=== PATIENT | male | born 1960 | race African-American/Black ===

== ENCOUNTER 2017-01-10 19:18 | Emergency (ER) | payer OTHER ==
[~2017-01-10] VITALS: Ht 170.2 cm; Wt 105.0 kg
[~2017-01-10 19:18] MED LIST: BRIM0.2S EACH EYE; DORZ1SOL2 EACH EYE; XALA0.00 EACH EYE
[2017-01-10 19:20] VITALS: BP 158/88; PULSE 92; RESP 18; TEMP 98.6; O2SAT 97
[2017-01-10] MEDS ORDERED: BRIM0.2S4 LEFT EYE (20:08)
[2017-01-10] MEDS ORDERED: LATA0.002 LEFT EYE (20:08)
[2017-01-10] MEDS ORDERED: DORZ2SOL7 LEFT EYE (20:10)
[2017-01-10] MEDS ORDERED: PROPARACAINE HCL 0.5% OPHT SOLN 15 ML BTL LEFT EYE ONE (20:30)
--- NOTE | 2017-01-10 20:51 | PD ---
HPI Chief Complaint: Eye Problems/Injury Time Seen by Provider: 20:46 Travel History International Travel<30 days: No Contact w/Intl Traveler<30days: No Traveled to known affect area: No History of Present Illness HPI Patient comes in complaining of left eye pain that began today. Patient states feels like an eye strain. Patient reports some sensitivity to light. Patient denies anything making it better. Patient reports it has been watering as well. Patient states that he called his disaster recovery analyst office, who recommended emergency department further treatment and evaluation. Patient denies any known trauma or foreign body sensation. Patient reports that he just had surgery on his left eye in November for glaucoma. Patient's disaster recovery analyst is Dr. Henson. [facility] Past Medical History Cancer: No Cardiovascular Problems: No Diabetes: No Diminished Hearing: No Endocrine: No Gastrointestinal Disorders: No Genitourinary: No Hepatitis: No Hiatal Hernia: No Hypertension: No Immune Disorder: No Medical other: Yes (GLAUCOMA) Musculoskeletal: No Neurologic: No Psychiatric: No Respiratory: No Thyroid Disease: No Past Surgical History AICD: No Joint Replacement: No Pacemaker: No Other Surgery: No Social History Alcohol Use: No Tobacco Use: No Substance Use: No Allergies-Medications (Allergen,Severity, Reaction): Coded Allergies: No Known Allergies (Verified , 01/10/17) Reported Meds & Prescriptions Reported Meds & Active Scripts Active Reported Cosopt Opth Drops (Dorzolamide-Timolol Opth Drops) 22.3-6.8 Mg/Ml Soln 1 Drop LEFT EYE BID Latanoprost Opth Drops (Latanoprost) 0.005% Drops 1 Drop LEFT EYE HS Refrigerate until opened. Brimonidine Opth Drops (Brimonidine Tartrate) 0.2% Soln 1 Drop LEFT EYE BID Review of Systems Except as stated in HPI: all other systems reviewed are Neg Physical Exam Narrative GENERAL: Well-developed, overly nourished, in no acute distress, and non-ill appearing. SKIN: Warm and dry. HEAD: Atraumatic. Normocephalic. EYES: Pupils equal and round. EOMI. No scleral icterus. Left eye injection with watery drainage. ENT: No nasal bleeding or discharge. Mucous membranes pink and moist. NECK: Trachea midline. Supple. No nuclear rigidity. RESPIRATORY: No accessory muscle use. No respiratory distress. MUSCULOSKELETAL: No obvious deformities. No clubbing. No cyanosis. No edema. Full range of motion. NEUROLOGICAL: Awake and alert. No obvious cranial nerve deficits. Motor grossly within normal limits. Normal speech. PSYCHIATRIC: Appropriate mood and affect; insight and judgment normal. Data Data Last Documented VS Vital Signs Date Time Temp Pulse Resp B/P Pulse Ox O2 Delivery O2 Flow Rate FiO2 01/10/17 19:20 98.6 92 18 158/88 97 Room Air Orders Proparacaine 0.5% Opth Soln (Alcaine 0.5 (01/10/17 20:30) MDM Medical Decision Making Medical Screen Exam Complete: Yes Emergency Medical Condition: Yes Differential Diagnosis Worsening glaucoma, conjunctivitis, corneal abrasion, corneal ulcer, foreign body, other Narrative Course Patient in no obvious distress upon re-evaluation. Any questions/concerns in reference to patient diagnosis/condition discussed and clarified prior to patient's discharge. Reinforced sheer importance of close follow up with patient 's disaster recovery analyst on Thursday. Instructed patient to return to ED immediately, if symptoms return/worsen. Pt showed understanding of above instructions. Further instructions and recommendations were detailed in discharge paperwork. Pt ambulated without difficulty out of ED at discharge. Procedures Procedure Narrative Verbal consent was obtained. Affected eye was anesthetized using proparacaine. Fluorescein staining and Wood lamp exam performed with no uptake seen. Negative Surinder sign. No hyphema, hyperemia, or rust ring. Eyelid was everted with no foreign body noted. No tenderness bilateral temporal arteries to palpation. Intraocular eye pressure was found to be 17, 19, and 16 for an average of 17.5. Visual acuity was found to be 20/40 OS, 20/30 OD, 20/25 both eyes. Patient tolerated procedure well. Physician Communication Physician Communication [id number] Dumont, disaster recovery analyst motel front desk clerk for Dr. Henson , who recommends not changing any of the patient's medications or starting any new medications including antibiotics. Recommends having patient discharged home, continue current medications, and follow-up in their office on Thursday. Diagnosis Primary Impression: Left eye pain Patient Instructions: Eye Pain (ED), General Instructions Additional Instructions: Follow-up with your disaster recovery analyst on Thursday. Take all your current medication as prescribed. Return to the emergency department if symptoms get worse. Disposition: DISCHARGE HOME Condition: Stable Shon Kaur Jan 10, 2017 20:51
== END 2017-01-10 21:17 | disposition home or self-care (01) ==
LOC: NEPB 19:18
DX: H57.12 Ocular pain, left eye (principal)
CPT/HCPCS: 99283

== ENCOUNTER 2018-10-07 02:45 | Inpatient (IN) ==
[2018-10-07] MEDS ORDERED: Morphine Inj 4 MG/ML Vial IV.PUSH ONE ×2 (03:03→04:00)
[2018-10-07] MEDS ORDERED: Sod Chloride 0.9% Inj 1,000 ML IV.SIG ONE (03:03)
--- NOTE | 2018-10-07 03:09 | ED ---
HPI General Chief Complaint: Abdominal Pain Stated Complaint: Abd pain Time Seen by Provider: 10/07/18 02:59 Source: patient Mode of arrival: ambulatory Limitations: no limitations History of Present Illness MD complaint: Reports abdominal pain Onset (ago): day(s) (2) Pain Consistency: constant and other (worse tonight) Location: Reports diffuse (mainly upper) Severity: severe Severity scale (1-10): 8 Quality: Reports aching and fullness Radiation: Reports none Migration to: Reports no migration Relieving factors: nothing Exacerbating factors: nothing Context: Reports other (History of hernia repair) Associated symptoms: Reports denies other symptoms; Denies nausea, vomiting, diarrhea, fever, constipation, dysuria and hematuria Related Data Home Medications Medication Instructions Recorded Confirmed No Known Home Medications 10/07/18 10/07/18 Allergies Allergy/AdvReac Type Severity Reaction Status Date / Time No Known Allergies Allergy Verified 10/07/18 02:50 Review of Systems ROS: all other systems reviewed are negative [facility] Surgical History Surgical History Cataract extraction status, unspecified eye (Acute) Hx of hernia repair (Acute) Social History Social History Substance History: No History of Abuse Second Hand Smoke Exposure: No Smoking Status: Never smoker How Often Do You Have a Drink Containing Alcohol: Monthly or less Recent Travel in [facility] within the Last 8 Weeks: No Recent Out of Country Travel within the Last 8 Weeks: Yes Exam Const General: cooperative, healthy appearing, well developed, well groomed, acute distress and other (He is standing by the bed leaning over the bed. He looks very uncomfortable) Orientation: alert, awake and oriented x3 HENMT Head: normal to inspection, normocephalic and atraumatic Mouth: moist mucous membranes Eyes Conjunctivae: conjunctivae normal Sclera: sclerae normal EOM: EOM intact bilaterally Neck Neck: normal visual inspection and full ROM Chest Chest: normal inspection of the chest Resp Effort & Inspection: normal respiratory effort and able to speak in complete sentences Auscultation: clear to auscultation bilaterally Cardio Rate: regular rate Rhythm: regular rhythm GI Inspection: distended Palpation: soft and tender in the epigastrum Back/Spine/Pelvis Cervical Spine: cervical ROM normal Thoracic/Lumbar Spine: thoraco-lumbar ROM normal Skin General: no rashes or lesions noted and turgor normal Neuro General: alert, awake, oriented x3, moves all extremities and CN's II-XI intact bilaterally Extrem General: normal to inspection and full ROM Psych Appearance: grossly normal Mental Status: mental status grossly normal Speech and Movement: speech and movement normal Mood: congruent mood Affect: normal affect Attitude: cooperative Thought Process: normal Thought Content: normal Judgment: judgment good Course Initial Documented Vital Signs Temperature 98.5 F 10/07/18 02:50 Pulse Rate 75 10/07/18 02:50 Respiratory Rate 21 10/07/18 02:50 Blood Pressure 134/63 10/07/18 02:50 Pulse Oximetry 97 10/07/18 02:50 Last Documented Vital Signs Temperature 98.5 F 10/07/18 02:50 Pulse Rate 71 10/07/18 03:22 Respiratory Rate 18 10/07/18 03:22 Blood Pressure 126/70 10/07/18 03:22 Pulse Oximetry 98 10/07/18 03:22 Medical Decision Making MDM Narrative Medical decision making narrative: This patient presents complaining with upper abdominal pain. Onset was 2 days ago. Symptoms became acutely worse tonight. He denies any associated symptoms. He does state that his abdomen feels distended. He also reports previous abdominal surgery. An IV will be started. He will be given IV pain medications. Routine lab work and a CT of his abdomen and pelvis are pending. His CT is compatible with a partial small bowel obstruction. He has dilated loops of small bowel with some inflammatory changes around the jejunum. I have treated him empirically with IV Zosyn. He is continuing to have pain. He will be given another dose of morphine. I will request admission to the hospital for further evaluation and treatment. The patient states that Dr. Faust did his hernia repair. Medical Screen Exam Complete: Yes Emergency Medical Condition: Yes Differential Diagnosis Differential Diagnosis: Differential diagnosis of abdominal pain includes but is not limited to gastritis, pancreatitis, hepatitis, gastroenteritis, constipation, urinary retention, peptic ulcer disease, diverticulitis or appendicitis Lab Data Lab results reviewed: Yes I reviewed the patient's lab results. Result diagrams: 10/07/18 03:11 10/07/18 03:11 Lab Results 10/07/18 10/07/18 Range/Units 03:11 03:11 WBC 12.3 H (4.0-11.0) th/mm3 RBC 4.78 (4.50-5.90) mil/mm3 Hgb 14.3 (13.0-17.0) gm/dL Hct 42.4 (39.0-51.0) % MCV 88.9 (80.0-100.0) fL MCH 30.0 (27.0-34.0) pg MCHC 33.7 (32.0-36.0) % RDW 12.7 (11.6-17.2) % Plt Count 328 (150-450) th/mm3 MPV 7.1 (7.0-11.0) fL Neut % (Auto) 77.3 H (16.0-70.0) % Lymph % (Auto) 15.3 (9.0-44.0) % [place] % (Auto) 6.6 (0.0-8.0) % Eos % (Auto) 0.5 (0.0-4.0) % Baso % (Auto) 0.3 (0.0-2.0) % Neut # (Auto) 9.5 H (1.8-7.7) th/mm3 Lymph # (Auto) 1.9 (1.0-4.8) th/mm3 [place] # (Auto) 0.8 (0.0-0.9) th/mm3 Eos # (Auto) 0.1 (0.0-0.4) th/mm3 Baso # (Auto) 0.0 (0.0-0.2) th/mm3 WBC Differential . Differential Comment Auto diff final Sodium 137 (136-145) meq/L Potassium 3.9 (3.5-5.1) meq/L Chloride 105 (98-107) meq/L Carbon Dioxide 26.5 (21.0-32.0) meq/L Anion Gap 6 (5-15) meq/L BUN 13 (7-18) mg/dL Creatinine 0.85 (0.60-1.30) mg/dL Estimated GFR Greater than 89 (>89) mL/min Random Glucose 142 H (74-106) mg/dL Calcium 8.2 L (8.5-10.1) mg/dL Magnesium 2.1 (1.5-2.5) mg/dL Total Bilirubin 0.6 (0.2-1.0) mg/dL AST 15 (15-37) U/L ALT 38 (12-78) U/L Alkaline Phosphatase 105 (45-117) U/L Total Protein 9.0 H (6.4-8.2) g/dL Albumin 3.7 (3.4-5.0) g/dL Lipase 59 L (73-393) U/L Imaging Data Radiologist's impression: Abdomen/Pelvis CT 10/07/18 03:03 CONCLUSION: 1. Dilated proximal small bowel with a single loop of distal jejunum showing inflammatory change. No free air or abscess. ECG Data EKG Prior to Arrival: No Attestation: I personally reviewed and interpreted this ECG as follows: (EKG shows a normal sinus rhythm with a rate of 68. No acute ischemic changes.) Discharge Plan Discharge Disposition Patient Disposition: ED Admit(ED Internal Use Only) Discharge Order Discharge Orders: ED Use Only Admit Order (Routine); Ordered 10/07/18 Ordered By: Clarice Valladares Discharge Details Diagnosis: Partial obstruction of small intestine Physicians Team ED Provider: Clarice Valladares Primary Care Provider: NON STAFF,PROVIDER Rxs /Orders / Referrals /Forms Prescriptions: No Action No Known Home Medications RF: 0 Status ED Status: Pending Admission
[2018-10-07 03:23] LABS: Baso % (Auto) 0.3 % (0.0-2.0); Eos # (Auto) 0.1 th/mm3 (0.0-0.4); Eos % (Auto) 0.5 % (0.0-4.0); Hematocrit 42.4 % (39.0-51.0); Hemoglobin 14.3 gm/dL (13.0-17.0); Lymph # (Auto) 1.9 th/mm3 (1.0-4.8); Lymph % (Auto) 15.3 % (9.0-44.0); Mean Corpuscular HGB Conc 33.7 % (32.0-36.0); Mean Corpuscular Volume 88.9 fL (80.0-100.0); Mean Platelet Volume 7.1 fL (7.0-11.0); Mono # (Auto) 0.8 th/mm3 (0.0-0.9); Mono % (Auto) 6.6 % (0.0-8.0); Neut # (Auto) 9.5 th/mm3 (1.8-7.7); Neut % (Auto) 77.3 % (16.0-70.0); Platelet Count 328 th/mm3 (150-450); Red Blood Count 4.78 mil/mm3 (4.50-5.90); Red Cell Distribution Width 12.7 % (11.6-17.2); White Blood Count 12.3 th/mm3 (4.0-11.0)
--- NOTE | 2018-10-07 03:49 | CT ---
EXAM DATE: 10/07/2018 3:31 AM EST AGE/SEX: 58 years / Male INDICATIONS: Diffuse abdominal pain. CLINICAL DATA: This is the patient's initial encounter. Patient reports that signs and symptoms have been present for 2 days and indicates a pain score of 8/10. MEDICAL/SURGICAL HISTORY: None. None. ORAL CONTRAST: No oral contrast ingested. RADIATION DOSE: 13.28 CTDI (mGy) COMPARISON: . TECHNIQUE: Multiple contiguous axial images were obtained through the abdomen and pelvis following b olus infusion of 96 ml Omnipaque 350 (iohexol) nonionic water-soluble contrast as a single exam dos e. No oral contrast ingested. Using automated exposure control and adjustment of the mA and/or kV ac cording to patient size, radiation dose was kept as low as reasonably achievable to obtain optimal di agnostic quality images. DICOM format image data is available electronically for review and comparis on. FINDINGS: Lower Lungs: The visualized lower lungs are clear. Liver: The liver has a homogeneous density without space-occupying lesion. A couple of tiny hepatic c yst within the right lobe. There is no dilation of the biliary tree. Gallbladder is unremarkable. Spleen: Homogeneous density without enlargement. Pancreas: Unremarkable without mass or calcification. Kidneys: Normal in size and shape. No evidence of mass or hydronephrosis. Adrenal Glands: Unremarkable. Aorta: The aorta and proximal iliac vessels are grossly unremarkable without aneurysmal dilation. Bowel/Mesentery: Dilated loops of proximal small bowel without a focal transition point. The distal small bowel and colon are normal in caliber. There is a single loop of distal jejunum that shows foca l wall thickening within the anterior aspects of the peritoneal cavity within the left lower quadrant . There is mild stranding of the adjacent mesentery. No free air or free fluid. Abdominal Wall: Prior ventral hernia repair utilizing mesh. No recurrent hernia.. Retroperitoneum: No evidence of adenopathy in the retrocrural, para-aortic, or deep pelvic regions. Bladder: Contours are smooth. Reproductive Organs: No abnormal masses or calcifications seen. Inguinal: The inguinal region is unremarkable without evidence of adenopathy. Bony Structures: Unremarkable. CONCLUSION: 1. Dilated proximal small bowel with a single loop of distal jejunum showing inflammatory change. No free air or abscess. Electronically signed by: Guicho Silverman MD 10/07/2018 3:48 AM EST
[2018-10-07 03:52] LABS: Alanine Aminotransferase 38 U/L (12-78); Albumin 3.7 g/dL (3.4-5.0); Anion Gap 6 meq/L (5-15); Aspartate Aminotransferase 15 U/L (15-37); Blood Urea Nitrogen 13 mg/dL (7-18); Calcium 8.2 mg/dL (8.5-10.1); Carbon Dioxide 26.5 meq/L (21.0-32.0); Chloride 105 meq/L (98-107); Glomerular Filtration Rate Greater Than 89 mL/min (>89); Glucose,Random 142 mg/dL (74-106); Lipase 59 U/L (73-393); Magnesium 2.1 mg/dL (1.5-2.5); Potassium 3.9 meq/L (3.5-5.1); Sodium 137 meq/L (136-145)
[2018-10-07 03:55] LABS: Alkaline Phosphatase 105 U/L (45-117)
[2018-10-07] MEDS ORDERED: Piperacil/Tazo 4.5 GM Premix 4.5 GM/100 ML BAG IV.SIG ONE (03:58)
[2018-10-07 04:34] LABS: Bilirubin,Urine Negative (Negative); Clarity,Urine Clear (Clear); Color,Urine Yellow (Yellw/Straw); Glucose,Urine (UA) Negative (Negative); Leukocyte Esterase,Urine Negative (Negative); Mucus,Urine Few /lpf (Occasional); Nitrite,Urine Negative (Negative); Squamous Epithelial Cell,Urine <1 /hpf (0-5); Urobilinogen,Urine 4 or Greater mg/dL (Less than 2)
[2018-10-07] MEDS: Morphine Inj 4 MG/ML Vial IV.PUSH PRN ×4 (06:16→16:14)
[2018-10-07] MEDS: Sod Chloride 0.9% Inj 1,000 ML IV.CONT SCH ×4 (06:50→23:36)
--- NOTE | 2018-10-07 08:58 | P.CONGS ---
[facility] Gen Surgery Consult Note Consult date: 10/07/18 Narrative: 58-year-old male with history of laparoscopic ventral hernia repair with mesh in [place] [address] Faust presents with 1 day of mid abdominal pain which worsened last night and required him to present to the emergency department. He describes the pain as a severe soreness. He says his abdomen is not usually this protuberant. He denies nausea vomiting or diarrhea. He did eat yesterday and has continued to have bowel movements. White blood count is 12,[address] abdomen and pelvis showed possible partial small bowel obstruction with thickening of a portion of the jejunum. Review of Systems All other systems reviewed negative except as stated in [facility] PMF[facility] - History History Provided By: Patient - Surgical History Surgical History: Surgical History (Last Reviewed 10/07/18 @ 03:07 by Clarice Valladares) Cataract extraction status, unspecified eye Hx of hernia repair - Tobacco History Second Hand Smoke Exposure: No Tobacco Use In Past 30 Days: No Smoking Status: Never smoker - Alcohol History How Often Do You Have a Drink Containing Alcohol: Monthly or less - Substance Use History Substance History: No History of Abuse - Travel History Recent Travel in the [place] Within the Last 8 Weeks: No Recent Travel Out of the Country Within the Last 8 Weeks: Yes - Immunization History Tetanus Immunization: >5 Years Hx Influenza Vaccine This Season: No Medications and Allergies Active Medications: Active Medications Sodium Chloride (Ns Inj) 1,000 mls @ 125 mls/hr IV.CONT .Q8H TIAGO Last Admin: 10/07/18 06:50 Dose: 125 mls/hr Influenza Virus Vaccine (Fluarix (Quad) Vaccine Inj) 0.5 ml IM .ONCE ONE Stop: 10/07/18 09:01 Morphine Sulfate (Morphine Inj) 4 mg IV.PUSH Q4H PRN PRN Reason: Acute Pain Last Admin: 10/07/18 06:16 Dose: 4 mg Ondansetron HCl (Zofran Inj) 4 mg IV.PUSH Q6H PRN PRN Reason: NAUSEA OR VOMITING Sodium Chloride (Ns Flush) 2 ml IV.FLUSH PRN PRN PRN Reason: FLUSH AFTER USING IV ACCESS Allergies Allergy/AdvReac Type Severity Reaction Status Date / Time No Known Allergies Allergy Verified 10/07/18 02:50 Home Medications Medication Instructions Recorded Confirmed Type No Known Home Medications 10/07/18 10/07/18 History Exam Vital signs: Vital Signs 10/07/18 02:50 10/07/18 03:22 10/07/18 06:00 Temperature 98.5 F 97.5 F L Pulse Rate 75 71 65 Respiratory Rate 21 18 22 Blood Pressure 134/63 126/70 126/60 Pulse Oximetry 97 98 98 10/07/18 08:00 Temperature 98.4 F Pulse Rate 67 Respiratory Rate 18 Blood Pressure 108/65 Pulse Oximetry 99 Intake & Output 10/06/18 10/07/18 10/07/18 18:59 06:59 18:59 Intake Total 1100 / 1100 Balance 1100 / 1100 Weight 105.6 kg Intake: IV 1100 / 1100 Zosyn 4.5 GM Premix 4.5 gm In 100 / 100 100 ml @ 200 mls/hr IV.SIG ONCE ONE Rx#:[id number] NS Inj 1,000 ML @ Wide Open IV. 1000 / 1000 SIG BOLUS ONE Rx#:[id number] Other: Date of Last Bowel Movement 10/06/18 Weight On Admission 105.6 kg Narrative: GENERAL: Awake and alert. No acute distress. Cooperative. HEAD: Normocephalic. Atraumatic. EYES: Pupils equal round and reactive to light bilaterally. No scleral icterus. ENT: Moist oral mucosa. NECK: Trachea midline. CHEST: Nonlabored breathing. No respiratory distress. CARDIOVASCULAR: Regular rate and rhythm. ABDOMEN: Significantly distended. Soft. Mild upper abdominal tenderness and moderate tenderness just above the umbilicus. Well-healed port scars. No rebound or guarding. EXTREMITIES: No cyanosis or edema. SKIN: Warm, dry, nonjaundiced. Results - Labs 10/07/18 03:11 10/07/18 03:11 Laboratory Results - last 24 hr 10/07/18 10/07/18 10/07/18 03:11 03:11 04:07 WBC 12.3 H RBC 4.78 Hgb 14.3 Hct 42.4 MCV 88.9 MCH 30.0 MCHC 33.7 RDW 12.7 Plt Count 328 MPV 7.1 Neut % (Auto) 77.3 H Lymph % (Auto) 15.3 [place] % (Auto) 6.6 Eos % (Auto) 0.5 Baso % (Auto) 0.3 Neut # (Auto) 9.5 H Lymph # (Auto) 1.9 [place] # (Auto) 0.8 Eos # (Auto) 0.1 Baso # (Auto) 0.0 WBC Differential . Differential Comment Auto diff final Sodium 137 Potassium 3.9 Chloride 105 Carbon Dioxide 26.5 Anion Gap 6 BUN 13 Creatinine 0.85 Estimated GFR Greater than 89 Random Glucose 142 H Calcium 8.2 L Magnesium 2.1 Total Bilirubin 0.6 AST 15 ALT 38 Alkaline Phosphatase 105 Total Protein 9.0 H Albumin 3.7 Lipase 59 L Urine Color Yellow Urine Clarity Clear Urine pH 6.0 Ur Specific [place] Greater than 1.060 H Urine Protein Negative Urine Glucose (UA) Negative Urine Ketones Negative Urine Occult Blood Negative Urine Nitrate Negative Urine Bilirubin Negative Urine Urobilinogen 4 or greater Ur Leukocyte Esterase Negative Urine RBC 3 Urine WBC 1 Ur Squamous Epith Cells <1 Urine Mucus Few H Micro UA Comment Culture not ind Ur Microscopic Review Not Reportable Urine Culture Comments Culture not ind - Imaging Imaging: ITS Impressions Abdomen/Pelvis CT 10/07/18 03:03 CONCLUSION: 1. Dilated proximal small bowel with a single loop of distal jejunum showing inflammatory change. No free air or abscess. CT scan - abdomen: report reviewed, image reviewed CT scan - pelvis: report reviewed, image reviewed Assessment and Plan - Assessment (1) Enteritis Code(s): K52.9 - Noninfective gastroenteritis and colitis, unspecified Status : Acute (2) Partial obstruction of small intestine Code(s): K56.600 - Partial intestinal obstruction, unspecified as to cause Status: Acute - Plan Possible partial small bowel obstruction with some inflammation of portion of the jejunum. This may be secondary to adhesions from previous surgery. He is definitely not fully obstructed. I will order a small bowel series to evaluate further and see if this will help resolve the obstruction. He is unlikely to require surgical intervention.
[2018-10-07] MEDS ORDERED: Influenza (Quadrivalent) Vaccine 0.5 ML Syringe IM ONE (09:00)
--- NOTE | 2018-10-07 10:04 | P.HPIM ---
History of Present Illness Primary Care Physician: No Primary Care Physician Chief Complaint: Abdominal pain History of Present Illness: This is a 58 year old male patient with a past surgical history which includes Laparoscopic repair of umbilical hernia repair with mesh 11/20/[address] Faust. Patient presented to the ER last night due to 1 day of mid abdominal pain which was worsening. He describes the pain as a severe soreness. He says his abdomen is not usually this protuberant. He denies nausea vomiting or diarrhea. He did eat yesterday and has continued to have bowel movements. White blood count is 12,[address] abdomen and pelvis showed possible partial small bowel obstruction with thickening of a portion of the jejunum. PMH/PSxH: umbilical hernia S/P Laparoscopic repair of umbilical hernia repair with mesh with Dr. Faust cataract surgery FMH: reviewed and noncontributory Social history: occasional ETOH use approximately once a month lifelong nonsmoker Diagnosis (1) Enteritis: (2) Partial obstruction of small intestine: Inpatient Certification Inpatient Certification: I certify that the inpatient services were ordered in accordance with Medicare regulations governing the order. This includes certification that hospital inpatient services are reasonable and necessary and in the case of services not specified as inpatient-only under 42 CFR 419.22(n), that they are appropriately provided as inpatient services in accordance to with the 2-midnight benchmark under 43 CFR 412.3(e) Medications and Allergies Allergies Allergy/AdvReac Type Severity Reaction Status Date / Time No Known Allergies Allergy Verified 10/07/18 02:50 Home Medications Medication Instructions Recorded Confirmed Type No Known Home Medications 10/07/18 10/07/18 History Active Medications: Active Medications Sodium Chloride (Ns Inj) 1,000 mls @ 125 mls/hr IV.CONT .Q8H TIAGO Last Admin: 10/07/18 06:50 Dose: 125 mls/hr Morphine Sulfate (Morphine Inj) 4 mg IV.PUSH Q4H PRN PRN Reason: Acute Pain Last Admin: 10/07/18 06:16 Dose: 4 mg Ondansetron HCl (Zofran Inj) 4 mg IV.PUSH Q6H PRN PRN Reason: NAUSEA OR VOMITING Sodium Chloride (Ns Flush) 2 ml IV.FLUSH PRN PRN PRN Reason: FLUSH AFTER USING IV ACCESS Physical Exam Vital signs: Last Vital Signs Temp 98.4 F 10/07/18 08:00 Pulse 67 10/07/18 08:00 Resp 18 10/07/18 08:00 BP 108/65 10/07/18 08:00 Pulse Ox 99 10/07/18 08:00 Narrative: GENERAL: This is a well-nourished, well-developed patient, in no apparent distress. CARDIOVASCULAR: Regular rate and rhythm without murmurs, gallops, or rubs. RESPIRATORY: Clear to auscultation. Breath sounds equal bilaterally. No wheezes , rales, or rhonchi. GASTROINTESTINAL: MUSCULOSKELETAL: Extremities without clubbing, cyanosis, or edema. NEURO: Alert & Oriented x4 to person, place, time, situation. Moves all ext x4 Results Labs CBC & Chem 7: 10/07/18 03:11 10/07/18 03:11 Caprini VTE Risk Assessment Caprini VTE Risk Assessment: No/Low Risk (score <= 1) Caprini Risk Assessment Model: Point Value = 1 Point Value = 2 Point Value = 3 Point Value = 5 Age 41-60 Minor surgery BMI > 25 kg/m2 Swollen legs Varicose veins or History of unexplained or recurrent spontaneous Oral contraceptives or hormone replacement Sepsis (< 1 month) Serious lung disease, including pneumonia (< 1 month) Abnormal pulmonary function Acute myocardial infarction Congestive heart failure (< 1 month) History of inflammatory bowel disease Medical patient at bed rest Age 61-74 Arthroscopic surgery Major open surgery (> 45 min) Laparoscopic surgery (> 45 min) Malignancy Confined to bed (> 72 hours) Immobilizing plaster cast Central venous access Age >= 75 History of VTE Family history of VTE Factor V Leiden Prothrombin [id number] Lupus anticoagulant Anticardiolipin antibodies Elevated serum homocysteine Heparin-induced thrombocytopenia Other congenital or acquired thrombophilia Stroke (< 1 month) Elective arthroplasty Hip, pelvis, or leg fracture Acute spinal cord injury (< 1 month) Prophylaxis Regimen: Total Risk Factor Score Risk Level Prophylaxis Regimen 0-1 Low Early ambulation 2 Moderate Order ONE of the following: *Sequential Compression Device (SCD) *Heparin 5000 units SQ BID 3-4 Higher Order ONE of the following medications: *Heparin 5000 units SQ TID *Enoxaparin/Lovenox 40 mg SQ daily (WT < 150 kg, CrCl > 30 mL/min) *Enoxaparin/Lovenox 30 mg SQ daily (WT < 150 kg, CrCl > 10-29 mL/min) *Enoxaparin/Lovenox 30 mg SQ BID (WT < 150 kg, CrCl > 30 mL/min) AND/OR *Sequential Compression Device (SCD) 5 or more Highest Order ONE of the following medications: *Heparin 5000 units SQ TID (Preferred with Epidurals) *Enoxaparin/Lovenox 40 mg SQ daily (WT < 150 kg, CrCl > 30 mL/min) *Enoxaparin/Lovenox 30 mg SQ daily (WT < 150 kg, CrCl > 10-29 mL/min) *Enoxaparin/Lovenox 30 mg SQ BID (WT < 150 kg, CrCl > 30 mL/min) AND *Sequential Compression Device (SCD) Assessment and Plan Assessment (1) Enteritis: Code(s): K52.9 - Noninfective gastroenteritis and colitis, unspecified Status: Acute (2) Partial obstruction of small intestine: Code(s): K56.600 - Partial intestinal obstruction, unspecified as to cause Status: Acute Plan This is a 58 year old male patient with a past surgical history which includes Laparoscopic repair of umbilical hernia repair with mesh 11/20/[address] Faust. Patient presented to the ER last night due to 1 day of mid abdominal pain which was worsening. He describes the pain as a severe soreness. He says his abdomen is not usually this protuberant. He denies nausea vomiting or diarrhea. He did eat yesterday and has continued to have bowel movements. White blood count is 12,[address] abdomen and pelvis showed possible partial small bowel obstruction with thickening of a portion of the jejunum. Partial SBO Abdomen/Pelvis CT 10/07/18: Dilated proximal small bowel with a single loop of distal jejunum showing inflammatory change. No free air or abscess. NPO IVF Morphine as needed for pain Zofran as needed for N/V Consult to general surgery, appreciate assistance Small bowel follow through ordered DVT prophylaxis with SCDs H&P: Quality VTE Deep Vein Thrombosis/Pulmonary Embolism Present on Admission: No
[2018-10-07] MEDS ORDERED: Diatrizoate Meglum/Diatrizoate Sod Liq 120 ML Bottle (for RAD diag) PO ONE (10:45)
--- NOTE | 2018-10-07 16:08 | FL ---
EXAM DATE: 10/07/2018 3:55 PM EST AGE/SEX: 58 years / Male INDICATIONS: Obstruction. CLINICAL DATA: This is the patient's initial encounter. Patient reports that signs and symptoms have been present for 2 days and indicates a pain score of 3/10. MEDICAL/SURGICAL HISTORY: None. . ventral hernia repair. COMPARISON: No prior exams available for comparison. FLUORO TIME: 0.4 IMAGE COUNT: 9 CONTRAST: Gastrografin FINDINGS: Preliminary film demonstrated dilated small bowel. Mesh appears to be seen in the abdomen and pelvic regions.. The stomach is grossly unremarkable. Examination of the small bowel demonstrates normal mucosal pattern involving the jejunum and ileum. T he small bowel is dilated measuring up to 5.9 cm. The dilatation is most prominent in the left mid ab domen. The transition point is not seen on this Gastrografin small bowel study. Contrast is seen with in the colon on the 4.5 hour image. Fluoroscopy of the abdomen was performed, however the contrast wa s so dilute, a transition point was not seen. CONCLUSION: Contrast is seen within the colon on the 4.5 hour image consistent with no complete obstruction. Dilatation of the small bowel, especially prominent at the proximal small bowel in the left mid abdom en. Some degree of partial obstruction cannot be excluded. Ileus could also have this appearance. Electronically signed by: Robert Henderson MD 10/07/2018 4:07 PM EST
--- NOTE | 2018-10-07 17:20 | ECG ---
Date Performed: 10/07/2018 Time Performed: 03:19:59 PTAGE: 58 years EKG: Sinus rhythm NORMAL ECG NO PREVIOUS TRACING DOCTOR: Vanna Miranda Interpretating Date/Time 10/07/2018 17:16:51
[2018-10-08 05:49] LABS: Baso % (Auto) 0.4 % (0.0-2.0); Eos # (Auto) 0.1 th/mm3 (0.0-0.4); Eos % (Auto) 1.6 % (0.0-4.0); Hematocrit 36.6 % (39.0-51.0); Hemoglobin 12.1 gm/dL (13.0-17.0); Lymph # (Auto) 1.9 th/mm3 (1.0-4.8); Lymph % (Auto) 23.4 % (9.0-44.0); Mean Corpuscular HGB Conc 33.2 % (32.0-36.0); Mean Corpuscular Hemoglobin 30.1 pg (27.0-34.0); Mean Corpuscular Volume 90.8 fL (80.0-100.0); Mean Platelet Volume 7.5 fL (7.0-11.0); Mono # (Auto) 0.9 th/mm3 (0.0-0.9); Mono % (Auto) 11.1 % (0.0-8.0); Neut # (Auto) 5.3 th/mm3 (1.8-7.7); Neut % (Auto) 63.5 % (16.0-70.0); Platelet Count 284 th/mm3 (150-450); Red Blood Count 4.03 mil/mm3 (4.50-5.90); Red Cell Distribution Width 12.6 % (11.6-17.2); White Blood Count 8.3 th/mm3 (4.0-11.0)
[2018-10-08 06:03] LABS: Anion Gap 5 meq/L (5-15); Blood Urea Nitrogen 9 mg/dL (7-18); Calcium 7.6 mg/dL (8.5-10.1); Carbon Dioxide 24.6 meq/L (21.0-32.0); Chloride 111 meq/L (98-107); Glomerular Filtration Rate Greater Than 89 mL/min (>89); Glucose,Random 103 mg/dL (74-106); Potassium 3.8 meq/L (3.5-5.1); Sodium 141 meq/L (136-145)
[2018-10-08] MEDS: Sod Chloride 0.9% Inj 1,000 ML IV.CONT SCH ×2 (06:33→11:04)
--- NOTE | 2018-10-08 09:06 | XR ---
EXAM DATE: 10/08/2018 8:56 AM EST AGE/SEX: 58 years / Male INDICATIONS: Obstruction. CLINICAL DATA: This is the patient's initial encounter. Patient reports that signs and symptoms have been present for 3 days and indicates a pain score of 0/10. MEDICAL/SURGICAL HISTORY: None. . ventral hernia repair COMPARISON: C, SMALL BOWEL W GASTROGRAFIN, 10/07/2018. . FINDINGS: Contrast is noted throughout the colon extending to the rectum from yesterday's small bowel examinat ion. There are multiple loops of slightly distended air-filled small bowel again noted primarily in t he right abdomen. No pneumatosis or gross free air. Remainder of exam is unchanged. CONCLUSION: 1. Contrast administered for yesterday's small bowel series is now entirely in the colon extending t o the rectum. 2. Persistent dilatation of several small bowel loops most consistent with adynamic ileus versus fran e degree of partial small bowel obstruction. Electronically signed by: Toñito Lambert MD 10/08/2018 9:05 AM EST
--- NOTE | 2018-10-08 10:19 | P.PNGS ---
Subjective Interval history: Pain is almost completely resolved. He had multiple liquid bowel movts. SBFT yesterday showed dilated proximal small bowel. Contrast reached colon by 4.5 hrs. Physical Exam Vital signs: Vital Signs 10/07/18 11:54 10/07/18 15:00 10/07/18 20:33 Temperature 98.1 F 97.8 F 98.1 F Pulse Rate 67 72 69 Respiratory Rate 17 18 17 Blood Pressure 111/56 L 121/59 L 115/58 L Pulse Oximetry 98 98 99 10/07/18 23:31 10/08/18 08:10 Temperature 98.5 F 98.4 F Pulse Rate 67 70 Respiratory Rate 17 19 Blood Pressure 97/50 L 112/59 L Pulse Oximetry 96 95 Intake & Output 10/07/18 10/08/18 10/08/18 18:59 06:59 18:59 Intake Total 1500 / 1500 2480 / 2480 Balance 1500 / 1500 2480 / 2480 Weight 107.2 kg Intake: IV 1000 / 1000 1999 NS Inj 1,000 ML @ 75 mls/hr IV. 1000 / 1000 1999 CONT .[id number] [facility] Rx#:[id number] Oral 500 / 500 480 / 480 Other: # Voids 4 2 Date of Last Bowel Movement 10/07/18 # Bowel Movements 0 Narrative: NAD Abd: soft, moderate distention, nontender Results - Labs 10/08/18 05:14 10/08/18 05:14 Laboratory Results - last 24 hr 10/08/18 10/08/18 05:14 05:14 WBC 8.3 RBC 4.03 L Hgb 12.1 L D Hct 36.6 L MCV 90.8 MCH 30.1 MCHC 33.2 RDW 12.6 Plt Count 284 MPV 7.5 Neut % (Auto) 63.5 Lymph % (Auto) 23.4 Dane % (Auto) 11.1 H Eos % (Auto) 1.6 Baso % (Auto) 0.4 Neut # (Auto) 5.3 Lymph # (Auto) 1.9 Dane # (Auto) 0.9 Eos # (Auto) 0.1 Baso # (Auto) 0.0 WBC Differential . Differential Comment Auto diff final Sodium 141 Potassium 3.8 Chloride 111 H Carbon Dioxide 24.6 Anion Gap 5 BUN 9 Creatinine 0.76 Estimated GFR Greater than 89 Random Glucose 103 Calcium 7.6 L - Imaging Imaging: ITS Impressions Small Bowel X-Ray 10/07/18 00:00 CONCLUSION: Contrast is seen within the colon on the 4.5 hour image consistent with no complete obstruction. Dilatation of the small bowel, especially prominent at the proximal small bowel in the left mid abdomen. Some degree of partial obstruction cannot be excluded. Ileus could also have this appearance. Abdomen/Pelvis CT 10/07/18 03:03 CONCLUSION: 1. Dilated proximal small bowel with a single loop of distal jejunum showing inflammatory change. No free air or abscess. Abdomen X-Ray 10/08/18 07:00 CONCLUSION: 1. Contrast administered for yesterday's small bowel series is now entirely in the colon extending to the rectum. 2. Persistent dilatation of several small bowel loops most consistent with adynamic ileus versus some degree of partial small bowel obstruction. Assessment and Plan - Assessment (1) Enteritis Code(s): K52.9 - Noninfective gastroenteritis and colitis, unspecified Status : Acute (2) Partial obstruction of small intestine Code(s): K56.600 - Partial intestinal obstruction, unspecified as to cause Status: Acute - Plan Partial small bowel obstruction- significant appearing on SBFT although symptoms are much improved. WIll try soft diet. If he can tolerate two meals without adverse effect would be ok for discharge from my standpoint.
--- NOTE | 2018-10-08 13:03 | P.PNIM ---
Subjective Interval history: Pt is moving his bowels and is feeling less bloated Tolerating advanced diet for lunch today Physical Exam Vital signs: Last Vital Signs Temp 98.4 F 10/08/18 08:10 Pulse 70 10/08/18 08:10 Resp 19 10/08/18 08:10 BP 112/59 L 10/08/18 08:10 Pulse Ox 95 10/08/18 08:10 Narrative: General: NAD, AAOx3 Chest: CTA bilaterally Cardiac: Regular Abd: +BS, soft protuberant/mildly distended, minimal diffuse tenderness Ext: No edema Results Labs CBC & Chem 7: 10/17/18 06:37 10/17/18 06:37 Imaging Small Bowel X-Ray 10/07/18 00:00 CONCLUSION: Contrast is seen within the colon on the 4.5 hour image consistent with no complete obstruction. Dilatation of the small bowel, especially prominent at the proximal small bowel in the left mid abdomen. Some degree of partial obstruction cannot be excluded. Ileus could also have this appearance. Abdomen/Pelvis CT 10/07/18 03:03 CONCLUSION: 1. Dilated proximal small bowel with a single loop of distal jejunum showing inflammatory change. No free air or abscess. Abdomen X-Ray 10/08/18 07:00 CONCLUSION: 1. Contrast administered for yesterday's small bowel series is now entirely in the colon extending to the rectum. 2. Persistent dilatation of several small bowel loops most consistent with adynamic ileus versus some degree of partial small bowel obstruction. Assessment and Plan Assessment (1) Enteritis: Code(s): K52.9 - Noninfective gastroenteritis and colitis, unspecified Status: Acute (2) Partial obstruction of small intestine: Code(s): K56.600 - Partial intestinal obstruction, unspecified as to cause Status: Acute Plan This is a 58 year old male patient with a past surgical history which includes Laparoscopic repair of umbilical hernia repair with mesh 11/20/[address] Faust. Patient presented to the ER last night due to 1 day of mid abdominal pain which was worsening. He describes the pain as a severe soreness. He says his abdomen is not usually this protuberant. He denies nausea vomiting or diarrhea. He did eat yesterday and has continued to have bowel movements. White blood count is 12,[address] abdomen and pelvis showed possible partial small bowel obstruction with thickening of a portion of the jejunum. Partial SBO - Abdomen/Pelvis CT 10/07/18 --> Dilated proximal small bowel with a single loop of distal jejunum showing inflammatory change. No free air or abscess. - Pt was made NPO and given IVF - General surgery was consulted. - SBFT (10/07/18) --> Contrast is seen within the colon on the 4.5 hour image consistent with no complete obstruction. Dilatation of the small bowel, especially prominent at the proximal small bowel in the left mid abdomen. Some degree of partial obstruction cannot be excluded. Ileus could also have this appearance. - Pt had several BMs after the SBFT and is symptomatically doing better. - Repeat KUB (10/08/18: 1. Contrast administered for yesterday's small bowel series is now entirely in the colon extending to the rectum. 2. Persistent dilatation of several small bowel loops most consistent with adynamic ileus versus some degree of partial small bowel obstruction. - Diet advanced this afternoon to a regular soft diet and per GS notes, if pt tolerates 2 soft diet meals that he will be cleared for discharge from their standpoint. Pt still with some mild distension and discomfort on exam. Will followup with pt later this evening and determine about whether or not we will be discharging him this evening. - Pt will need outpt followup with Dr. Corrales in 7-10 days following discharge. DVT prophylaxis with SCDs Progress Note: Quality VTE Deep Vein Thrombosis/Pulmonary Embolism Present on Admission: No
[2018-10-08] MEDS: Morphine Inj 4 MG/ML Vial IV.PUSH PRN ×2 (15:46→19:53)
[2018-10-09] MEDS: Morphine Inj 4 MG/ML Vial IV.PUSH PRN ×2 (00:12→04:13)
--- NOTE | 2018-10-09 11:59 | P.DS ---
DS: Providers Date of admission: 10/07/18 04:05 Primary care physician: No Primary Care Physician Consults: 10/07/18 04:05 Consult to General Surgery Routine Consulting Provider: Vinnie Corrales Patient known to:: Nikita Faust Reason for Consultation: early or partial SBO Notified:: Service Spoke with:: GENNA Date Notified:: 10/07/18 Time Notified:: 05:16 Comments:: [facility] Ordering Provider: JOSE RAMON Brief History from admission: This is a 58 year old male patient with a past surgical history which includes Laparoscopic repair of umbilical hernia repair with mesh 11/20/[address] Faust. Patient presented to the ER last night due to 1 day of mid abdominal pain which was worsening. He describes the pain as a severe soreness. He says his abdomen is not usually this protuberant. He denies nausea vomiting or diarrhea. He did eat yesterday and has continued to have bowel movements. White blood count is 12,[address] abdomen and pelvis showed possible partial small bowel obstruction with thickening of a portion of the jejunum. PMH/PSxH: umbilical hernia S/P Laparoscopic repair of umbilical hernia repair with mesh with Dr. Faust cataract surgery FMH: reviewed and noncontributory Social history: occasional ETOH use approximately once a month lifelong nonsmoker DS: Diagnosis Discharge Diagnosis (1) Enteritis: Status: Acute (2) Partial obstruction of small intestine: Status: Acute DS: Summary This is a 58 year old male patient with a past surgical history which includes Laparoscopic repair of umbilical hernia repair with mesh 11/20/[address] Faust. Patient presented to the ER last night due to 1 day of mid abdominal pain which was worsening. He describes the pain as a severe soreness. He says his abdomen is not usually this protuberant. He denies nausea vomiting or diarrhea. He did eat yesterday and has continued to have bowel movements. White blood count is 12,[address] abdomen and pelvis showed possible partial small bowel obstruction with thickening of a portion of the jejunum. Partial SBO - Abdomen/Pelvis CT 10/07/18 --> Dilated proximal small bowel with a single loop of distal jejunum showing inflammatory change. No free air or abscess. - Pt was made NPO and given IVF - General surgery was consulted. - SBFT (10/07/18) --> Contrast is seen within the colon on the 4.5 hour image consistent with no complete obstruction. Dilatation of the small bowel, especially prominent at the proximal small bowel in the left mid abdomen. Some degree of partial obstruction cannot be excluded. Ileus could also have this appearance. - Pt had several BMs after the SBFT and is symptomatically doing better. - Repeat KUB (10/08/18): 1. Contrast administered for yesterday's small bowel series is now entirely in the colon extending to the rectum. 2. Persistent dilatation of several small bowel loops most consistent with adynamic ileus versus some degree of partial small bowel obstruction. - Diet advanced this afternoon to a regular soft diet and per GS notes, if pt tolerates 2 soft diet meals that he will be cleared for discharge from their standpoint. Pt still with some mild distension and discomfort on exam. Will followup with pt later this evening and determine about whether or not we will be discharging him this evening. - Pt will need outpt followup with Dr. Corrales in 7-10 days following discharge. DVT prophylaxis with SCDs Time Spent with Patient Total time spent providing and/or coordinating discharge services: Quality: VTE Deep Vein Thrombosis/Pulmonary Embolism Present on Admission: No Exam Narrative Exam Narrative: General: NAD, AAOx3 Chest: CTA bilaterally Cardiac: Regular Abd: +BS, soft protuberant/mildly distended (improving), minimal diffuse tenderness (improving) Ext: No edema Results Impressions ITS Impressions Small Bowel X-Ray 10/07/18 00:00 CONCLUSION: Contrast is seen within the colon on the 4.5 hour image consistent with no complete obstruction. Dilatation of the small bowel, especially prominent at the proximal small bowel in the left mid abdomen. Some degree of partial obstruction cannot be excluded. Ileus could also have this appearance. Abdomen/Pelvis CT 10/07/18 03:03 CONCLUSION: 1. Dilated proximal small bowel with a single loop of distal jejunum showing inflammatory change. No free air or abscess. Abdomen X-Ray 10/08/18 07:00 CONCLUSION: 1. Contrast administered for yesterday's small bowel series is now entirely in the colon extending to the rectum. 2. Persistent dilatation of several small bowel loops most consistent with adynamic ileus versus some degree of partial small bowel obstruction. Discharge Plan Discharge Disposition Patient Disposition: 01 Discharge Home Discharge Condition Condition: Stable Discharge Details Anticipated Discharge Date: 10/08/18 Discharge Comment: Pt is to followup with Dr. Corrales in 7-10 days following discharge He is to followup with his PCP in 1 week. Physicians Team ED Provider: Clarice Valladares Primary Care Provider: Primary Care Lauren Hill Attending Provider: Lon See Other Providers: Vinnie Corrales Rxs /Orders / Referrals /Forms Prescriptions: Continue No Known Home Medications RF: 0 Referrals: Harrison Naidu MD [Family Provider] - See Instructions (follow up in 1 week) Vinnie Corrales MD [GENERAL SURGERY] - See Instructions (Followup in 7-10 days from discharge. ) Primary Care Lauren Hill [Primary Care Provider] - See Instructions Status ED Status: Left Department
--- NOTE | 2018-10-09 13:07 | P.PNIM ---
Subjective Interval history: Patient reports abd pain after eating a chicken sandwich last night patient also reports vomiting this AM resolved the pain Physical Exam Vital signs: Last Vital Signs Temp 99.1 F 10/09/18 08:00 Pulse 73 10/09/18 08:00 Resp 20 10/09/18 08:00 BP 128/58 L 10/09/18 08:00 Pulse Ox 95 10/09/18 08:00 Narrative: General: NAD, AAOx3 Chest: CTA bilaterally Cardiac: Regular Abd: +BS, distended, minimal diffuse tenderness Ext: No edema Results Labs CBC & Chem 7: 10/08/18 05:14 10/08/18 05:14 Assessment and Plan Assessment (1) Enteritis: Code(s): K52.9 - Noninfective gastroenteritis and colitis, unspecified Status: Acute (2) Partial obstruction of small intestine: Code(s): K56.600 - Partial intestinal obstruction, unspecified as to cause Status: Acute Plan This is a 58 year old male patient with a past surgical history which includes Laparoscopic repair of umbilical hernia repair with mesh 11/20/[address] Faust. Patient presented to the ER last night due to 1 day of mid abdominal pain which was worsening. He describes the pain as a severe soreness. He says his abdomen is not usually this protuberant. He denies nausea vomiting or diarrhea. He did eat yesterday and has continued to have bowel movements. White blood count is 12,[address] abdomen and pelvis showed possible partial small bowel obstruction with thickening of a portion of the jejunum. Partial SBO - Abdomen/Pelvis CT 10/07/18 --> Dilated proximal small bowel with a single loop of distal jejunum showing inflammatory change. No free air or abscess. - Pt was made NPO and given IVF - General surgery was consulted. - SBFT (10/07/18) --> Contrast is seen within the colon on the 4.5 hour image consistent with no complete obstruction. Dilatation of the small bowel, especially prominent at the proximal small bowel in the left mid abdomen. Some degree of partial obstruction cannot be excluded. Ileus could also have this appearance. - Pt had several BMs after the SBFT and is symptomatically doing better. - Repeat KUB (10/08/18: 1. Contrast administered for yesterday's small bowel series is now entirely in the colon extending to the rectum. 2. Persistent dilatation of several small bowel loops most consistent with adynamic ileus versus some degree of partial small bowel obstruction. - Diet advanced this afternoon to a regular soft diet and per [facility] notes, if pt tolerates 2 soft diet meals that he will be cleared for discharge from their standpoint. Pt still with some mild distension and discomfort on exam. Will followup with pt later this evening and determine about whether or not we will be discharging him this evening. - Pt did not tolerate soft diet - NPO - Dr See discussed with Dr Corrales 10/09 - KUB, CBC, BMP and Mag ordered DVT prophylaxis with SCDs Progress Note: Quality VTE Deep Vein Thrombosis/Pulmonary Embolism Present on Admission: No
[2018-10-09] MEDS: KCL 20 mEq/NACL 0.45% Inj 1,000 ML IV.CONT SCH (13:30)
[2018-10-09 14:10] LABS: Baso % (Auto) 0.4 % (0.0-2.0); Eos % (Auto) 0.3 % (0.0-4.0); Hematocrit 38.7 % (39.0-51.0); Lymph # (Auto) 1.2 th/mm3 (1.0-4.8); Lymph % (Auto) 14.2 % (9.0-44.0); Mean Corpuscular HGB Conc 33.6 % (32.0-36.0); Mean Corpuscular Hemoglobin 30.5 pg (27.0-34.0); Mean Corpuscular Volume 90.9 fL (80.0-100.0); Mean Platelet Volume 7.4 fL (7.0-11.0); Mono % (Auto) 11.4 % (0.0-8.0); Neut # (Auto) 6.3 th/mm3 (1.8-7.7); Neut % (Auto) 73.7 % (16.0-70.0); Platelet Count 312 th/mm3 (150-450); Red Blood Count 4.26 mil/mm3 (4.50-5.90); Red Cell Distribution Width 12.4 % (11.6-17.2); White Blood Count 8.5 th/mm3 (4.0-11.0)
[2018-10-09 14:30] LABS: Anion Gap 9 meq/L (5-15); Blood Urea Nitrogen 8 mg/dL (7-18); Calcium 8.8 mg/dL (8.5-10.1); Carbon Dioxide 30.7 meq/L (21.0-32.0); Chloride 100 meq/L (98-107); Glomerular Filtration Rate Greater Than 89 mL/min (>89); Glucose,Random 119 mg/dL (74-106); Magnesium 2.1 mg/dL (1.5-2.5); Potassium 3.3 meq/L (3.5-5.1); Sodium 140 meq/L (136-145)
--- NOTE | 2018-10-09 15:44 | XR ---
EXAM DATE: 10/09/2018 3:32 PM EST AGE/SEX: 58 years / Male INDICATIONS: Distension. Abdominal pain. CLINICAL DATA: This is the patient's subsequent encounter. Patient reports that signs and symptoms h ave been present for 4 - 6 days and indicates a pain score of 3/10. MEDICAL/SURGICAL HISTORY: . . Hernia repair. COMPARISON: [facility] [place], ABDOMEN 1V KUB, 10/08/2018. [facility] [place], CT ABDOMEN & PELVIS W CONTRAST, 10/07/2018. [facility], SMALL BOWEL W GASTROGRAFIN, 10/07/2018. . FINDINGS: 2 frontal supine views of the abdomen demonstrate abnormally dilated small bowel measuring up to 5.8 cm. There is a small amount of contrast and air within the distal colon no significant right-sided: Gas is visualized. Clips overlie the abdomen related to prior hernia repair with mesh. No organomegal y or abnormal calcifications are identified. Bones demonstrate no acute abnormality. CONCLUSION: Abnormally dilated proximal and mid small bowel increased from the prior examinations with paucity of distal bowel gas is suspicious for some degree of obstruction. However, the oral contrast from the s mall bowel follow-through performed 2 days ago is within the colon suggesting against a complete or h igh-grade bowel obstruction. Electronically signed by: Robert Horton MD 10/09/2018 3:43 PM EST
--- NOTE | 2018-10-09 17:19 | P.PNGS ---
Subjective Interval history: Had emesis distention and abdominal pain this am. NG placed with significant bilious output and he feels much better. Physical Exam Vital signs: Vital Signs 10/08/18 20:00 10/09/18 00:19 10/09/18 05:20 Temperature 99.4 F 98.8 F 98.0 F Pulse Rate 77 71 70 Respiratory Rate 20 18 17 Blood Pressure 139/70 143/71 H 115/55 L Pulse Oximetry 97 93 L 99 10/09/18 08:00 10/09/18 12:05 Temperature 99.1 F 98.6 F Pulse Rate 73 67 Respiratory Rate 20 20 Blood Pressure 128/58 L 103/55 L Pulse Oximetry 95 96 Intake & Output 10/08/18 10/09/18 10/09/18 18:59 06:59 18:59 Intake Total 1999 720 / 720 Output Total 1200 / 1200 Balance 1999 720 / 720 -1200 / -1200 Weight 106.9 kg Intake: IV 500 / 500 NS Inj 1,000 ML @ 75 mls/hr IV. 500 / 500 CONT .[id number] [facility] Rx#:[id number] Oral 1500 / 1500 720 / 720 Output: Gastric Drainage 1200 / 1200 Right Nare Nasogastric Tube 1200 / 1200 Other: # Voids 5 4 Date of Last Bowel Movement 10/07/18 10/08/18 Narrative: Abd: distended, soft, ntd. NG to suction Results - Labs 10/09/18 13:20 10/09/18 13:20 Laboratory Results - last 24 hr 10/09/18 10/09/18 13:20 13:20 WBC 8.5 RBC 4.26 L Hgb 13.0 Hct 38.7 L MCV 90.9 MCH 30.5 MCHC 33.6 RDW 12.4 Plt Count 312 MPV 7.4 Neut % (Auto) 73.7 H Lymph % (Auto) 14.2 [facility] % (Auto) 11.4 H Eos % (Auto) 0.3 Baso % (Auto) 0.4 Neut # (Auto) 6.3 Lymph # (Auto) 1.2 [facility] # (Auto) 1.0 H Eos # (Auto) 0.0 Baso # (Auto) 0.0 WBC Differential . Differential Comment Auto diff final Sodium 140 Potassium 3.3 L Chloride 100 D Carbon Dioxide 30.7 Anion Gap 9 BUN 8 Creatinine 0.79 Estimated GFR Greater than 89 Random Glucose 119 H Calcium 8.8 D Magnesium 2.1 - Imaging Imaging: ITS Impressions Small Bowel X-Ray 10/07/18 00:00 CONCLUSION: Contrast is seen within the colon on the 4.5 hour image consistent with no complete obstruction. Dilatation of the small bowel, especially prominent at the proximal small bowel in the left mid abdomen. Some degree of partial obstruction cannot be excluded. Ileus could also have this appearance. Abdomen/Pelvis CT 10/07/18 03:03 CONCLUSION: 1. Dilated proximal small bowel with a single loop of distal jejunum showing inflammatory change. No free air or abscess. Abdomen X-Ray 10/09/18 14:41 CONCLUSION: Abnormally dilated proximal and mid small bowel increased from the prior examinations with paucity of distal bowel gas is suspicious for some degree of obstruction. However, the oral contrast from the small bowel follow-through performed 2 days ago is within the colon suggesting against a complete or high- grade bowel obstruction. Assessment and Plan - Assessment (1) Enteritis Code(s): K52.9 - Noninfective gastroenteritis and colitis, unspecified Status : Acute (2) Partial obstruction of small intestine Code(s): K56.600 - Partial intestinal obstruction, unspecified as to cause Status: Acute - Plan Persistent partial SBO- did not tolerate diet and NGT had to be placed. Continue conservative management for now. Cont NGT to suction.
[2018-10-10] MEDS: KCL 20 mEq/NACL 0.45% Inj 1,000 ML IV.CONT SCH ×3 (02:17→21:07)
[2018-10-10 07:17] LABS: Baso % (Auto) 0.3 % (0.0-2.0); Eos % (Auto) 0.3 % (0.0-4.0); Hematocrit 38.4 % (39.0-51.0); Hemoglobin 13.6 gm/dL (13.0-17.0); Lymph # (Auto) 1.5 th/mm3 (1.0-4.8); Lymph % (Auto) 14.8 % (9.0-44.0); Mean Corpuscular HGB Conc 35.5 % (32.0-36.0); Mean Corpuscular Hemoglobin 31.4 pg (27.0-34.0); Mean Corpuscular Volume 88.3 fL (80.0-100.0); Mean Platelet Volume 7.6 fL (7.0-11.0); Mono % (Auto) 9.9 % (0.0-8.0); Neut # (Auto) 7.3 th/mm3 (1.8-7.7); Neut % (Auto) 74.7 % (16.0-70.0); Platelet Count 290 th/mm3 (150-450); Red Blood Count 4.35 mil/mm3 (4.50-5.90); Red Cell Distribution Width 12.2 % (11.6-17.2); White Blood Count 9.8 th/mm3 (4.0-11.0)
[2018-10-10 07:34] LABS: Anion Gap 10 meq/L (5-15); Blood Urea Nitrogen 11 mg/dL (7-18); Calcium 8.7 mg/dL (8.5-10.1); Carbon Dioxide 31.1 meq/L (21.0-32.0); Chloride 99 meq/L (98-107); Glomerular Filtration Rate Greater Than 89 mL/min (>89); Glucose,Random 107 mg/dL (74-106); Magnesium 2.2 mg/dL (1.5-2.5); Potassium 3.1 meq/L (3.5-5.1); Sodium 140 meq/L (136-145)
[2018-10-10] MEDS: Potassium Chlor 20 mEq Premix 20 MEQ/100 ML PIGGYBACK IV.SIG SCH ×2 (10:22→13:20)
--- NOTE | 2018-10-10 11:54 | XR ---
EXAM DATE: 10/10/2018 11:51 AM EST AGE/SEX: 58 years / Male INDICATIONS: Middle abdominal pain and distention. CLINICAL DATA: This is the patient's subsequent encounter. Patient reports that signs and symptoms h ave been present for 4 - 6 days and indicates a pain score of 2/10. MEDICAL/SURGICAL HISTORY: None. . Hernia mesh. COMPARISON: [facility], ABDOMEN 1V KUB, 10/09/2018. . FINDINGS: Dilated small bowel loops remain evident. The colon is collapsed. No significant change is noted. CONCLUSION: Persistent small bowel ileus. Electronically signed by: Lior Adler MD 10/10/2018 11:53 AM EST
--- NOTE | 2018-10-10 13:42 | P.PNIM ---
Subjective Interval history: Patient reports that abd feels better after NG tube placed Physical Exam Vital signs: Last Vital Signs Temp 98.6 F 10/10/18 08:00 Pulse 80 10/10/18 08:00 Resp 20 10/10/18 08:00 BP 109/65 10/10/18 08:00 Pulse Ox 94 L 10/10/18 08:00 Narrative: General: NAD, AAOx3 Chest: CTA bilaterally Cardiac: Regular Abd: +BS, distended, minimal diffuse tenderness Ext: No edema Results Labs CBC & Chem 7: 10/10/18 05:59 10/10/18 05:59 Assessment and Plan Assessment (1) Enteritis: Code(s): K52.9 - Noninfective gastroenteritis and colitis, unspecified Status: Acute (2) Partial obstruction of small intestine: Code(s): K56.600 - Partial intestinal obstruction, unspecified as to cause Status: Acute Plan This is a 58 year old male patient with a past surgical history which includes Laparoscopic repair of umbilical hernia repair with mesh 11/20/[address] Faust. Patient presented to the ER last night due to 1 day of mid abdominal pain which was worsening. He describes the pain as a severe soreness. He says his abdomen is not usually this protuberant. He denies nausea vomiting or diarrhea. He did eat yesterday and has continued to have bowel movements. White blood count is 12,[address] abdomen and pelvis showed possible partial small bowel obstruction with thickening of a portion of the jejunum. Partial SBO - Abdomen/Pelvis CT 10/07/18 --> Dilated proximal small bowel with a single loop of distal jejunum showing inflammatory change. No free air or abscess. - Pt was made NPO and given IVF - General surgery was consulted. - SBFT (10/07/18) --> Contrast is seen within the colon on the 4.5 hour image consistent with no complete obstruction. Dilatation of the small bowel, especially prominent at the proximal small bowel in the left mid abdomen. Some degree of partial obstruction cannot be excluded. Ileus could also have this appearance. - Pt had several BMs after the SBFT and is symptomatically doing better. - Repeat KUB (10/08/18: 1. Contrast administered for yesterday's small bowel series is now entirely in the colon extending to the rectum. 2. Persistent dilatation of several small bowel loops most consistent with adynamic ileus versus some degree of partial small bowel obstruction. - Diet advanced this afternoon to a regular soft diet and per [facility] notes, if pt tolerates 2 soft diet meals that he will be cleared for discharge from their standpoint. Pt still with some mild distension and discomfort on exam. Will followup with pt later this evening and determine about whether or not we will be discharging him this evening. - Pt did not tolerate soft diet - NPO - Dr See discussed with Dr Corrales 10/09 - NG tube placed 10/09/18 - continue NG tube - repeat KUB in AM Hypokalemia replaced recheck BMP in AM DVT prophylaxis with SCDs Progress Note: Quality VTE Deep Vein Thrombosis/Pulmonary Embolism Present on Admission: No
--- NOTE | 2018-10-10 14:44 | P.PNGS ---
Subjective Interval history: He is passing flatus and has had multiple liquids BMs. However NG output was quite high overnight and KUB shows persistent small bowel and gastric dilatation. Physical Exam Vital signs: Vital Signs 10/09/18 16:05 10/09/18 19:30 10/10/18 00:40 Temperature 98.5 F 98.7 F 98.2 F Pulse Rate 67 71 70 Respiratory Rate 18 18 18 Blood Pressure 132/65 112/55 L 104/53 L Pulse Oximetry 95 96 95 10/10/18 05:05 10/10/18 08:00 10/10/18 12:00 Temperature 98.5 F 98.6 F 98.5 F Pulse Rate 83 80 77 Respiratory Rate 18 20 18 Blood Pressure 106/53 L 109/65 111/56 L Pulse Oximetry 93 L 94 L 94 L Intake & Output 10/09/18 10/10/18 10/10/18 18:59 06:59 18:59 Intake Total 420 / 420 1001 / 1001 1100 / 1100 Output Total 2600 / 2600 3000 / 3000 Balance -218 / -2180 -1998 / -1998 1100 / 1100 Weight 106.8 kg Intake: IV 991 / 991 1100 / 1100 Potassium Chlor 20 mEq/NACL 0. 991 / 991 900 / 900 45% Inj 1,000 ML @ 84 mls/hr IV .CONT .[id number] [facility] Rx#:[id number] KCl 20 mEq Premix Inj 20 meq In 200 / 200 100 ml @ 50 mls/hr IV.SIG Q2H [facility] Rx#:[id number] Oral 420 / 420 10 / 10 Output: Urine 1400 / 1400 Gastric Drainage 1200 / 1200 3000 / 3000 Right Nare Nasogastric Tube 1200 / 1200 3000 / 3000 Other: # Voids 2 Date of Last Bowel Movement 10/08/18 10/09/18 10/10/18 # Bowel Movements 1 0 Narrative: NAD Abd: soft, moderate distention, ntd, ng to LIS Results - Labs 10/10/18 05:59 10/10/18 05:59 Laboratory Results - last 24 hr 10/10/18 10/10/18 05:59 05:59 WBC 9.8 RBC 4.35 L Hgb 13.6 Hct 38.4 L MCV 88.3 MCH 31.4 MCHC 35.5 RDW 12.2 Plt Count 290 MPV 7.6 Neut % (Auto) 74.7 H Lymph % (Auto) 14.8 [place] % (Auto) 9.9 H Eos % (Auto) 0.3 Baso % (Auto) 0.3 Neut # (Auto) 7.3 Lymph # (Auto) 1.5 [place] # (Auto) 1.0 H Eos # (Auto) 0.0 Baso # (Auto) 0.0 WBC Differential . Differential Comment Auto diff final Sodium 140 Potassium 3.1 L Chloride 99 Carbon Dioxide 31.1 Anion Gap 10 BUN 11 Creatinine 0.85 Estimated GFR Greater than 89 Random Glucose 107 H Calcium 8.7 Magnesium 2.2 - Imaging Imaging: ITS Impressions Small Bowel X-Ray 10/07/18 00:00 CONCLUSION: Contrast is seen within the colon on the 4.5 hour image consistent with no complete obstruction. Dilatation of the small bowel, especially prominent at the proximal small bowel in the left mid abdomen. Some degree of partial obstruction cannot be excluded. Ileus could also have this appearance. Abdomen/Pelvis CT 10/07/18 03:03 CONCLUSION: 1. Dilated proximal small bowel with a single loop of distal jejunum showing inflammatory change. No free air or abscess. Abdomen X-Ray 10/10/18 00:00 CONCLUSION: Persistent small bowel ileus. Assessment and Plan - Assessment (1) Enteritis Code(s): K52.9 - Noninfective gastroenteritis and colitis, unspecified Status : Acute (2) Partial obstruction of small intestine Code(s): K56.600 - Partial intestinal obstruction, unspecified as to cause Status: Acute - Plan Persistent partial SBO- + flatus and liquid bm but high ngt output and concerning kub. Cont NGT. Cont nonop management but if not improving in next few days may require lysis of adhesions.
[2018-10-11] MEDS: KCL 20 mEq/NACL 0.45% Inj 1,000 ML IV.CONT SCH (01:00)
[2018-10-11 06:12] LABS: Baso # (Auto) 0.1 th/mm3 (0.0-0.2); Baso % (Auto) 0.6 % (0.0-2.0); Eos # (Auto) 0.1 th/mm3 (0.0-0.4); Eos % (Auto) 1.2 % (0.0-4.0); Hematocrit 39.6 % (39.0-51.0); Hemoglobin 13.1 gm/dL (13.0-17.0); Lymph # (Auto) 2.4 th/mm3 (1.0-4.8); Lymph % (Auto) 24.7 % (9.0-44.0); Mean Corpuscular HGB Conc 33.2 % (32.0-36.0); Mean Corpuscular Hemoglobin 29.9 pg (27.0-34.0); Mean Corpuscular Volume 90.1 fL (80.0-100.0); Mean Platelet Volume 7.1 fL (7.0-11.0); Mono % (Auto) 10.3 % (0.0-8.0); Neut # (Auto) 6.1 th/mm3 (1.8-7.7); Neut % (Auto) 63.2 % (16.0-70.0); Platelet Count 325 th/mm3 (150-450); Red Blood Count 4.39 mil/mm3 (4.50-5.90); Red Cell Distribution Width 12.3 % (11.6-17.2); White Blood Count 9.6 th/mm3 (4.0-11.0)
[2018-10-11 06:37] LABS: Anion Gap 9 meq/L (5-15); Blood Urea Nitrogen 13 mg/dL (7-18); Calcium 8.8 mg/dL (8.5-10.1); Carbon Dioxide 29.7 meq/L (21.0-32.0); Chloride 98 meq/L (98-107); Glomerular Filtration Rate Greater Than 89 mL/min (>89); Glucose,Random 83 mg/dL (74-106); Magnesium 2.2 mg/dL (1.5-2.5); Potassium 3.2 meq/L (3.5-5.1); Sodium 137 meq/L (136-145)
--- NOTE | 2018-10-11 08:52 | P.PNGS ---
Subjective Interval history: Still having flatus and liquid bm. Wants NGT out. About to go down for x ray. Physical Exam Vital signs: Vital Signs 10/10/18 12:00 10/10/18 16:00 10/10/18 20:15 Temperature 98.5 F 98.0 F 98.2 F Pulse Rate 77 81 78 Respiratory Rate 18 18 18 Blood Pressure 111/56 L 123/73 103/58 L Pulse Oximetry 94 L 94 L 95 10/11/18 00:20 10/11/18 05:00 Temperature 98.0 F 98.7 F Pulse Rate 69 86 Respiratory Rate 17 17 Blood Pressure 114/61 125/66 Pulse Oximetry 94 L 93 L Intake & Output 10/10/18 10/11/18 10/11/18 18:59 06:59 18:59 Intake Total 1999 30 / 30 Output Total 800 / 800 250 / 250 Balance 1200 / 1200 -220 / -220 Weight 106.8 kg Intake: IV 1999 Potassium Chlor 20 mEq/NACL 0. 1800 / 1800 45% Inj 1,000 ML @ 84 mls/hr IV .CONT .[id number] [facility] Rx#:[id number] KCl 20 mEq Premix Inj 20 meq In 200 / 200 100 ml @ 50 mls/hr IV.SIG Q2H [facility] Rx#:[id number] Oral 30 / 30 Output: Urine 250 / 250 Gastric Drainage 800 / 800 Right Nare Nasogastric Tube 800 / 800 Other: Date of Last Bowel Movement 10/10/18 10/10/18 # Bowel Movements 0 Narrative: Abd: mild distention, soft, ntd, NG reported 200cc out overnight Results - Labs 10/11/18 05:18 10/11/18 05:18 Laboratory Results - last 24 hr 10/11/18 10/11/18 05:18 05:18 WBC 9.6 RBC 4.39 L Hgb 13.1 Hct 39.6 MCV 90.1 MCH 29.9 MCHC 33.2 RDW 12.3 Plt Count 325 MPV 7.1 Neut % (Auto) 63.2 Lymph % (Auto) 24.7 [place] % (Auto) 10.3 H Eos % (Auto) 1.2 Baso % (Auto) 0.6 Neut # (Auto) 6.1 Lymph # (Auto) 2.4 [place] # (Auto) 1.0 H Eos # (Auto) 0.1 Baso # (Auto) 0.1 WBC Differential . Differential Comment Auto diff final Sodium 137 Potassium 3.2 L Chloride 98 Carbon Dioxide 29.7 Anion Gap 9 BUN 13 Creatinine 0.86 Estimated GFR Greater than 89 Random Glucose 83 Calcium 8.8 Magnesium 2.2 - Imaging Imaging: ITS Impressions Small Bowel X-Ray 10/07/18 00:00 CONCLUSION: Contrast is seen within the colon on the 4.5 hour image consistent with no complete obstruction. Dilatation of the small bowel, especially prominent at the proximal small bowel in the left mid abdomen. Some degree of partial obstruction cannot be excluded. Ileus could also have this appearance. Abdomen/Pelvis CT 10/07/18 03:03 CONCLUSION: 1. Dilated proximal small bowel with a single loop of distal jejunum showing inflammatory change. No free air or abscess. Abdomen X-Ray 10/10/18 00:00 CONCLUSION: Persistent small bowel ileus. Assessment and Plan - Assessment (1) Enteritis Code(s): K52.9 - Noninfective gastroenteritis and colitis, unspecified Status : Acute (2) Partial obstruction of small intestine Code(s): K56.600 - Partial intestinal obstruction, unspecified as to cause Status: Acute - Plan Persistent partial SBO- KUB pending. Try clamping ngt and starting clears.
--- NOTE | 2018-10-11 09:13 | P.PNIM ---
Subjective Interval history: Patient reports positive flatus and passing liquid stool denies abd pain asking for NG Tube to be removed Physical Exam Vital signs: Last Vital Signs Temp 98.7 F 10/11/18 05:00 Pulse 86 10/11/18 05:00 Resp 17 10/11/18 05:00 BP 125/66 10/11/18 05:00 Pulse Ox 93 L 10/11/18 05:00 Narrative: General: NAD, AAOx3 Chest: CTA bilaterally Cardiac: Regular Abd: +BS, non distended,non tender, hypoactive bowel sounds Ext: No edema Results Labs CBC & Chem 7: 10/11/18 05:18 10/11/18 05:18 Assessment and Plan Assessment (1) Enteritis: Code(s): K52.9 - Noninfective gastroenteritis and colitis, unspecified Status: Acute (2) Partial obstruction of small intestine: Code(s): K56.600 - Partial intestinal obstruction, unspecified as to cause Status: Acute Plan This is a 58 year old male patient with a past surgical history which includes Laparoscopic repair of umbilical hernia repair with mesh 11/20/[address] Faust. Patient presented to the ER last night due to 1 day of mid abdominal pain which was worsening. He describes the pain as a severe soreness. He says his abdomen is not usually this protuberant. He denies nausea vomiting or diarrhea. He did eat yesterday and has continued to have bowel movements. White blood count is 12,[address] abdomen and pelvis showed possible partial small bowel obstruction with thickening of a portion of the jejunum. Partial SBO - Abdomen/Pelvis CT 10/07/18 --> Dilated proximal small bowel with a single loop of distal jejunum showing inflammatory change. No free air or abscess. - Pt was made NPO and given IVF - General surgery was consulted. - SBFT (10/07/18) --> Contrast is seen within the colon on the 4.5 hour image consistent with no complete obstruction. Dilatation of the small bowel, especially prominent at the proximal small bowel in the left mid abdomen. Some degree of partial obstruction cannot be excluded. Ileus could also have this appearance. - Pt had several BMs after the SBFT and is symptomatically doing better. - Repeat KUB (10/08/18: 1. Contrast administered for yesterday's small bowel series is now entirely in the colon extending to the rectum. 2. Persistent dilatation of several small bowel loops most consistent with adynamic ileus versus some degree of partial small bowel obstruction. - Diet advanced this afternoon to a regular soft diet and per [facility] notes, if pt tolerates 2 soft diet meals that he will be cleared for discharge from their standpoint. Pt still with some mild distension and discomfort on exam. Will followup with pt later this evening and determine about whether or not we will be discharging him this evening. - Pt did not tolerate soft diet - Dr See discussed with Dr Corrales 10/09 - NG tube placed 10/09/18 - 10/11 general surgery ordered to clamp NG tube and trial of clears - repeat KUB 10/11 pending Hypokalemia replaced recheck BMP in AM DVT prophylaxis with SCDs Attending Attestation Patient examined. Assessment and plan formulated with Yaa Piña PA-C. I agree with the above. PARTIAL SBO. POSSIBLE ADHESIONS. IMPROVED. NGT CLAMPED AND CLEARS ADDED. IVF. KCL. Progress Note: Quality VTE Deep Vein Thrombosis/Pulmonary Embolism Present on Admission: No
--- NOTE | 2018-10-11 09:16 | XR ---
EXAM DATE: 10/11/2018 9:05 AM EST AGE/SEX: 58 years / Male INDICATIONS: Obstruction. Patient complains of abdomen pain. CLINICAL DATA: This is the patient's subsequent encounter. Patient reports that signs and symptoms h ave been present for 4 - 6 days and indicates a pain score of 2/10. MEDICAL/SURGICAL HISTORY: None. . ventral hernia repair [place] [facility] [place]UB[place]. . FINDINGS: Nasogastric tube is across the GE junction. There is persistent dilatation of mid to distal small omari wel that has progressed in the interval. The colon remains relatively gasless. There is for previous abdominal hernia surgery is noted. There is no definite free air CONCLUSION: Continued mid to distal small bowel dilatation in spite of nasogastric tube Electronically signed by: Luis Gooed MD 10/11/2018 9:15 AM EST
[2018-10-11] MEDS: Potassium Chlor 20 mEq Premix 20 MEQ/100 ML PIGGYBACK IV.SIG SCH ×2 (10:00→12:50)
[2018-10-12 06:18] LABS: Baso % (Auto) 0.4 % (0.0-2.0); Eos # (Auto) 0.1 th/mm3 (0.0-0.4); Eos % (Auto) 1.1 % (0.0-4.0); Hemoglobin 13.5 gm/dL (13.0-17.0); Lymph # (Auto) 1.9 th/mm3 (1.0-4.8); Lymph % (Auto) 18.3 % (9.0-44.0); Mean Corpuscular HGB Conc 32.9 % (32.0-36.0); Mean Corpuscular Hemoglobin 29.6 pg (27.0-34.0); Mean Corpuscular Volume 90.1 fL (80.0-100.0); Mean Platelet Volume 7.1 fL (7.0-11.0); Mono % (Auto) 9.5 % (0.0-8.0); Neut # (Auto) 7.5 th/mm3 (1.8-7.7); Neut % (Auto) 70.7 % (16.0-70.0); Platelet Count 365 th/mm3 (150-450); Red Blood Count 4.54 mil/mm3 (4.50-5.90); Red Cell Distribution Width 12.5 % (11.6-17.2); White Blood Count 10.6 th/mm3 (4.0-11.0)
[2018-10-12] MEDS: KCL 20 mEq/NACL 0.45% Inj 1,000 ML IV.CONT SCH ×3 (06:28→17:56)
[2018-10-12 06:38] LABS: Anion Gap 11 meq/L (5-15); Blood Urea Nitrogen 7 mg/dL (7-18); Calcium 8.5 mg/dL (8.5-10.1); Carbon Dioxide 27.4 meq/L (21.0-32.0); Chloride 98 meq/L (98-107); Glomerular Filtration Rate Greater Than 89 mL/min (>89); Glucose,Random 111 mg/dL (74-106); Potassium 3.5 meq/L (3.5-5.1); Sodium 136 meq/L (136-145)
[2018-10-12] MEDS ORDERED: Phenol 1.4% 180 ML Spray Bottle OROPHARYNG PRN (09:59)
--- NOTE | 2018-10-12 10:17 | P.PNIM ---
Subjective Interval history: Patient sitting in chair NG tube clamped Patient reports that he tolerated clear liquids without N/V continues to pass flatus and liquid stool Physical Exam Vital signs: Last Vital Signs Temp 98.6 F 10/12/18 08:00 Pulse 68 10/12/18 08:00 Resp 18 10/12/18 08:00 BP 117/57 L 10/12/18 08:00 Pulse Ox 94 L 10/12/18 08:00 Narrative: General: NAD, AAOx3 Chest: CTA bilaterally Cardiac: Regular Abd: +BS, soft, distended,non tender, hypoactive bowel sounds Ext: No edema Results Labs CBC & Chem 7: 10/12/18 05:22 10/12/18 05:22 Assessment and Plan Assessment (1) Enteritis: Code(s): K52.9 - Noninfective gastroenteritis and colitis, unspecified Status: Acute (2) Partial obstruction of small intestine: Code(s): K56.600 - Partial intestinal obstruction, unspecified as to cause Status: Acute Plan This is a 58 year old male patient with a past surgical history which includes Laparoscopic repair of umbilical hernia repair with mesh 11/20/[address] Faust. Patient presented to the ER last night due to 1 day of mid abdominal pain which was worsening. He describes the pain as a severe soreness. He says his abdomen is not usually this protuberant. He denies nausea vomiting or diarrhea. He did eat yesterday and has continued to have bowel movements. White blood count is 12,[address] abdomen and pelvis showed possible partial small bowel obstruction with thickening of a portion of the jejunum. Partial SBO - Abdomen/Pelvis CT 10/07/18 --> Dilated proximal small bowel with a single loop of distal jejunum showing inflammatory change. No free air or abscess. - Pt was made NPO and given IVF - General surgery was consulted. - SBFT (10/07/18) --> Contrast is seen within the colon on the 4.5 hour image consistent with no complete obstruction. Dilatation of the small bowel, especially prominent at the proximal small bowel in the left mid abdomen. Some degree of partial obstruction cannot be excluded. Ileus could also have this appearance. - Pt had several BMs after the SBFT and is symptomatically doing better. - Repeat KUB (10/08/18: 1. Contrast administered for yesterday's small bowel series is now entirely in the colon extending to the rectum. 2. Persistent dilatation of several small bowel loops most consistent with adynamic ileus versus some degree of partial small bowel obstruction. - Diet advanced this afternoon to a regular soft diet and per [facility] notes, if pt tolerates 2 soft diet meals that he will be cleared for discharge from their standpoint. Pt still with some mild distension and discomfort on exam. Will followup with pt later this evening and determine about whether or not we will be discharging him this evening. - Pt did not tolerate soft diet - Dr See discussed with Dr Corrales 10/09 - NG tube removed by Dr. Corrales - repeat KUB 10/12 pending Hypokalemia replaced 10/12 potassium 3.5 DVT prophylaxis with SCDs Progress Note: Quality VTE Deep Vein Thrombosis/Pulmonary Embolism Present on Admission: No
--- NOTE | 2018-10-12 10:43 | P.PNGS ---
Subjective Interval history: Feels about the same. Has tolerated clears since yesterday with NGT clamped. + flatus and multiple small bms with some formed stool last night. Physical Exam Vital signs: Vital Signs 10/11/18 12:00 10/11/18 16:00 10/11/18 20:56 Temperature 98 F 98.4 F 98.5 F Pulse Rate 85 67 73 Respiratory Rate 18 18 19 Blood Pressure 112/70 122/59 L 129/59 L Pulse Oximetry 97 95 96 10/11/18 23:37 10/12/18 04:50 10/12/18 08:00 Temperature 98.5 F 98.6 F 98.6 F Pulse Rate 81 80 68 Respiratory Rate 18 18 18 Blood Pressure 130/65 141/65 H 117/57 L Pulse Oximetry 95 95 94 L Intake & Output 10/11/18 10/12/18 10/12/18 18:59 06:59 18:59 Intake Total 1100 / 1100 480 / 480 Output Total 200 / 200 0 / 0 Balance 900 / 900 480 / 480 0 / 0 Weight 102.5 kg Intake: IV 1100 / 1100 Potassium Chlor 20 mEq/NACL 0. 1000 / 1000 45% Inj 1,000 ML @ 84 mls/hr IV .CONT .[id number] [facility] Rx#:[id number] KCl 20 mEq Premix Inj 20 meq In 100 / 100 100 ml @ 50 mls/hr IV.SIG Q2H [facility] Rx#:[id number] Oral 480 / 480 Output: Urine 200 / 200 Gastric Drainage 0 / 0 0 / 0 Right Nare Nasogastric Tube 0 / 0 0 / 0 Other: # Voids 4 Date of Last Bowel Movement 10/11/18 10/12/18 # Bowel Movements 3 5 Narrative: NAD Abd: distended, soft ,ntd Results - Labs 10/12/18 05:22 10/12/18 05:22 Laboratory Results - last 24 hr 10/12/18 10/12/18 05:22 05:22 WBC 10.6 RBC 4.54 Hgb 13.5 Hct 41.0 MCV 90.1 MCH 29.6 MCHC 32.9 RDW 12.5 Plt Count 365 MPV 7.1 Neut % (Auto) 70.7 H Lymph % (Auto) 18.3 [place] % (Auto) 9.5 H Eos % (Auto) 1.1 Baso % (Auto) 0.4 Neut # (Auto) 7.5 Lymph # (Auto) 1.9 [place] # (Auto) 1.0 H Eos # (Auto) 0.1 Baso # (Auto) 0.0 WBC Differential . Differential Comment Auto diff final Sodium 136 Potassium 3.5 Chloride 98 Carbon Dioxide 27.4 Anion Gap 11 BUN 7 Creatinine 0.83 Estimated GFR Greater than 89 Random Glucose 111 H Calcium 8.5 - Imaging Imaging: ITS Impressions Small Bowel X-Ray 10/07/18 00:00 CONCLUSION: Contrast is seen within the colon on the 4.5 hour image consistent with no complete obstruction. Dilatation of the small bowel, especially prominent at the proximal small bowel in the left mid abdomen. Some degree of partial obstruction cannot be excluded. Ileus could also have this appearance. Abdomen/Pelvis CT 10/07/18 03:03 CONCLUSION: 1. Dilated proximal small bowel with a single loop of distal jejunum showing inflammatory change. No free air or abscess. Abdomen X-Ray 10/11/18 06:00 CONCLUSION: Continued mid to distal small bowel dilatation in spite of nasogastric tube Assessment and Plan - Assessment (1) Enteritis Code(s): K52.9 - Noninfective gastroenteritis and colitis, unspecified Status : Acute (2) Partial obstruction of small intestine Code(s): K56.600 - Partial intestinal obstruction, unspecified as to cause Status: Acute - Plan Persistent partial SBO- possibly slowly improving. D/c ngt. Start fulls.
--- NOTE | 2018-10-12 11:19 | XR ---
EXAM DATE: 10/12/2018 11:12 AM EST AGE/SEX: 58 years / Male INDICATIONS: Ileus CLINICAL DATA: This is the patient's subsequent encounter. Patient reports that signs and symptoms h ave been present for 4 - 6 days and indicates a pain score of 0/10. MEDICAL/SURGICAL HISTORY: None. . Hernia repair COMPARISON: C, ABDOMEN 1V KUB, 10/11/2018. . FINDINGS: Significant small bowel distention remains evident and has not significantly changed since the previ ous study in 10/11 RS nasogastric tube remains evident in the fundus of the stomach. Colon remains relatively collapsed. CONCLUSION: Small bowel ileus without significant improvement. Electronically signed by: Lior Adler MD 10/12/2018 11:18 AM EST
[2018-10-13] MEDS: KCL 20 mEq/NACL 0.45% Inj 1,000 ML IV.CONT SCH (02:32)
[2018-10-13] MEDS ORDERED: Diatrizoate Meglum/Diatrizoate Sod Liq 9 ML UDC PO ONE (09:38)
--- NOTE | 2018-10-13 09:46 | P.PNGS ---
Subjective Interval history: Tolerating some fulls. KUB yesterday showed sig dilated proximal bowel. He vomited overnight and has had nausea. Still having clear bms and flatus. Physical Exam Vital signs: Vital Signs 10/12/18 12:00 10/12/18 16:00 10/12/18 20:49 Temperature 97.8 F 98.5 F 99.2 F Pulse Rate 71 75 74 Respiratory Rate 20 18 16 Blood Pressure 129/67 115/59 L 107/57 L Pulse Oximetry 98 96 94 L 10/12/18 23:34 10/13/18 03:54 10/13/18 08:00 Temperature 96.8 F L 98.6 F 98.8 F Pulse Rate 81 78 82 Respiratory Rate 17 16 16 Blood Pressure 129/60 117/59 L 122/59 L Pulse Oximetry 95 95 95 Intake & Output 10/12/18 10/13/18 10/13/18 18:59 06:59 18:59 Intake Total 1000 / 1000 600 / 600 Output Total 0 / 0 0 / 0 Balance 1000 / 1000 600 / 600 Weight 103.9 kg Intake: IV 1000 / 1000 Potassium Chlor 20 mEq/NACL 0. 1000 / 1000 45% Inj 1,000 ML @ 84 mls/hr IV .CONT .[id number] [facility] Rx#:[id number] Oral 600 / 600 Output: Stool 0 / 0 Gastric Drainage 0 / 0 Right Nare Nasogastric Tube 0 / 0 Other: # Voids 6 Date of Last Bowel Movement 10/11/18 10/13/18 # Bowel Movements 1 Narrative: NAD Abd: soft, moderately distended Results - Labs 10/12/18 05:22 10/12/18 05:22 - Imaging Imaging: ITS Impressions Small Bowel X-Ray 10/07/18 00:00 CONCLUSION: Contrast is seen within the colon on the 4.5 hour image consistent with no complete obstruction. Dilatation of the small bowel, especially prominent at the proximal small bowel in the left mid abdomen. Some degree of partial obstruction cannot be excluded. Ileus could also have this appearance. Abdomen/Pelvis CT 10/07/18 03:03 CONCLUSION: 1. Dilated proximal small bowel with a single loop of distal jejunum showing inflammatory change. No free air or abscess. Abdomen X-Ray 10/12/18 00:00 CONCLUSION: Small bowel ileus without significant improvement. Assessment and Plan - Assessment (1) Enteritis Code(s): K52.9 - Noninfective gastroenteritis and colitis, unspecified Status : Acute (2) Partial obstruction of small intestine Code(s): K56.600 - Partial intestinal obstruction, unspecified as to cause Status: Acute - Plan Persistent partial SBO. Check CT a/p today. He is not quite tolerating fulls so I'm not sure he would tolerate discharge. Leaning towards needing lysis of adhesions. D/w patient and Dr. Helms.
--- NOTE | 2018-10-13 10:45 | P.PNIM ---
Subjective Interval history: pt vomited last night. not quite tolerating liquid diet. having stools Physical Exam Vital signs: Last Vital Signs Temp 98.8 F 10/13/18 08:00 Pulse 82 10/13/18 08:00 Resp 16 10/13/18 08:00 BP 122/59 L 10/13/18 08:00 Pulse Ox 95 10/13/18 08:00 Narrative: heart reg lung cta abd distended. bs ext no edema Results Labs CBC & Chem 7: 10/12/18 05:22 10/12/18 05:22 Assessment and Plan Assessment (1) Enteritis: Code(s): K52.9 - Noninfective gastroenteritis and colitis, unspecified Status: Acute (2) Partial obstruction of small intestine: Code(s): K56.600 - Partial intestinal obstruction, unspecified as to cause Status: Acute Plan This is a 58 year old male patient with a past surgical history which includes Laparoscopic repair of umbilical hernia repair with mesh 11/20/[address] Faust. Patient presented to the ER last night due to 1 day of mid abdominal pain which was worsening. He describes the pain as a severe soreness. He says his abdomen is not usually this protuberant. He denies nausea vomiting or diarrhea. He did eat yesterday and has continued to have bowel movements. White blood count is 12,[address] abdomen and pelvis showed possible partial small bowel obstruction with thickening of a portion of the jejunum. Partial SBO - Abdomen/Pelvis CT 10/07/18 --> Dilated proximal small bowel with a single loop of distal jejunum showing inflammatory change. No free air or abscess. - Pt was made NPO and given IVF - General surgery was consulted. - SBFT (10/07/18) --> Contrast is seen within the colon on the 4.5 hour image consistent with no complete obstruction. Dilatation of the small bowel, especially prominent at the proximal small bowel in the left mid abdomen. Some degree of partial obstruction cannot be excluded. Ileus could also have this appearance. - Pt had several BMs after the SBFT and is symptomatically doing better. - Repeat KUB (10/08/18: 1. Contrast administered for yesterday's small bowel series is now entirely in the colon extending to the rectum. 2. Persistent dilatation of several small bowel loops most consistent with adynamic ileus versus some degree of partial small bowel obstruction. PT still not quite tolerating liquids. vomited last night discussed with Pt and Dr Corrales..Repeat CT a/p today. Leaning toward MILES tomorrow Hypokalemia replaced 10/12 potassium 3.5 DVT prophylaxis with SCDs Progress Note: Quality VTE Deep Vein Thrombosis/Pulmonary Embolism Present on Admission: No
--- NOTE | 2018-10-13 17:28 | CT ---
EXAM DATE: 10/13/2018 5:16 PM EST AGE/SEX: 58 years / Male INDICATIONS: Abdominal pain. Obstruction. CLINICAL DATA: This is the patient's initial encounter. Patient reports that signs and symptoms have been present for 4 - 6 days and indicates a pain score of 4/10. MEDICAL/SURGICAL HISTORY: None. . Hernia repair. ORAL CONTRAST: Prescribed oral contrast ingested. RADIATION DOSE: 16.74 CTDI (mGy) COMPARISON: [facility] [place], CT ABDOMEN & PELVIS W CONTRAST, 10/07/2018. . TECHNIQUE: Multiple contiguous axial images were obtained through the abdomen and pelvis following b olus infusion of 97 ml Omnipaque 350 (iohexol) nonionic water-soluble contrast as a single exam dos e. Prescribed oral contrast ingested. Using automated exposure control and adjustment of the mA and/ or kV according to patient size, radiation dose was kept as low as reasonably achievable to obtain op timal diagnostic quality images. DICOM format image data is available electronically for review and comparison. FINDINGS: Lower Lungs: The visualized lower lungs are clear. Liver: The liver has a homogeneous density without space-occupying lesion. There is no dilation of th e biliary tree. Spleen: Homogeneous density without enlargement. Pancreas: Unremarkable without mass or calcification. Kidneys: Normal in size and shape. No evidence of mass or hydronephrosis. Adrenal Glands: Unremarkable. Aorta: The aorta and proximal iliac vessels are grossly unremarkable without aneurysmal dilation. Bowel/Mesentery: There are scattered small diverticuli in the colon with no inflammatory change. The re are multiple loops of mildly dilated proximal small bowel again noted measuring up to approximatel y 4.4 cm in greatest diameter. Several of these contain fluid. There are multiple small air-fluid lev els. There are air-fluid levels in portions of the colon as well. The distal small bowel and colon ar e decompressed. There is limited oral opacification of portions of the colon. There is no free air or fluid. An ill-defined transition zone in the anterior midline near the hernia repair. Abdominal Wall: Intact. There are postsurgical changes status post anterior hernia repair with appar ent mesh in place. There is no definite recurrent hernia. Retroperitoneum: No evidence of adenopathy in the retrocrural, para-aortic, or deep pelvic regions. Bladder: Contours are smooth. Reproductive Organs: No abnormal masses or calcifications seen. Inguinal: The inguinal region is unremarkable without evidence of adenopathy. Bony Structures: Unremarkable. CONCLUSION: 1. Abnormal bowel gas pattern again identified with multiple loops of mildly dilated small bowel josee led with fluid. There is a transition zone in the anterior mid abdomen which is poorly defined and lo cated near the hernia repair. The distal small bowel and colon are decompressed. Of concern for parti al small bowel obstruction. Contrast is noted in the colon so there is no complete obstruction. This is also similar in appearance to the prior study and may be chronic. Electronically signed by: Joseph Alves MD 10/13/2018 5:27 PM EST
--- NOTE | 2018-10-14 11:30 | P.PNGS ---
Subjective Interval history: CT a/p yesterday is basically still consistent with partial bowel obstruction. It appears there is some small bowel adherent to ventral mesh. Physical Exam Vital signs: Vital Signs 10/13/18 16:00 10/13/18 20:00 10/14/18 00:00 Temperature 98.2 F 97.8 F 98.1 F Pulse Rate 63 64 61 Respiratory Rate 18 17 17 Blood Pressure 101/58 L 136/67 106/57 L Pulse Oximetry 99 96 96 10/14/18 08:00 Temperature 97.9 F Pulse Rate 72 Respiratory Rate 18 Blood Pressure 97/54 L Pulse Oximetry 98 Intake & Output 10/13/18 10/14/18 10/14/18 18:59 06:59 18:59 Intake Total 0 / 0 Balance 0 / 0 Weight 103.7 kg Intake: Oral 0 / 0 Other: # Voids 2 Date of Last Bowel Movement 10/13/18 10/13/18 10/13/18 Narrative: NAD Abdomen remains distended Results - Labs 10/12/18 05:22 10/12/18 05:22 - Imaging Imaging: ITS Impressions Small Bowel X-Ray 10/07/18 00:00 CONCLUSION: Contrast is seen within the colon on the 4.5 hour image consistent with no complete obstruction. Dilatation of the small bowel, especially prominent at the proximal small bowel in the left mid abdomen. Some degree of partial obstruction cannot be excluded. Ileus could also have this appearance. Abdomen X-Ray 10/12/18 00:00 CONCLUSION: Small bowel ileus without significant improvement. Abdomen/Pelvis CT 10/13/18 00:00 CONCLUSION: 1. Abnormal bowel gas pattern again identified with multiple loops of mildly dilated small bowel filled with fluid. There is a transition zone in the anterior mid abdomen which is poorly defined and located near the hernia repair. The distal small bowel and colon are decompressed. Of concern for partial small bowel obstruction. Contrast is noted in the colon so there is no complete obstruction. This is also similar in appearance to the prior study and may be chronic. Assessment and Plan - Assessment (1) Enteritis Code(s): K52.9 - Noninfective gastroenteritis and colitis, unspecified Status : Acute (2) Partial obstruction of small intestine Code(s): K56.600 - Partial intestinal obstruction, unspecified as to cause Status: Acute - Plan Persistent partial SBO. He has not been able to tolerate full liquids despite having some liquid bowel movts. Will plan for laparoscopic lysis of adhesions, possible open, possible bowel resection tomorrow unless he has a significant change in status. He desires to proceed with surgery.
--- NOTE | 2018-10-14 11:48 | P.PNIM ---
Subjective Interval history: Pt had vomiting with full liquid dinner last night. His abdomen is still distended. Physical Exam Vital signs: Last Vital Signs Temp 97.9 F 10/14/18 08:00 Pulse 72 10/14/18 08:00 Resp 18 10/14/18 08:00 BP 97/54 L 10/14/18 08:00 Pulse Ox 98 10/14/18 08:00 Narrative: heart reg lung cta abd distended. bs ext no edema Results Labs CBC & Chem 7: 10/17/18 06:37 10/17/18 06:37 Imaging Small Bowel X-Ray 10/07/18 00:00 CONCLUSION: Contrast is seen within the colon on the 4.5 hour image consistent with no complete obstruction. Dilatation of the small bowel, especially prominent at the proximal small bowel in the left mid abdomen. Some degree of partial obstruction cannot be excluded. Ileus could also have this appearance. Abdomen/Pelvis CT 10/07/18 03:03 CONCLUSION: 1. Dilated proximal small bowel with a single loop of distal jejunum showing inflammatory change. No free air or abscess. Abdomen X-Ray 10/08/18 07:00 CONCLUSION: 1. Contrast administered for yesterday's small bowel series is now entirely in the colon extending to the rectum. 2. Persistent dilatation of several small bowel loops most consistent with adynamic ileus versus some degree of partial small bowel obstruction. Abdomen X-Ray 10/09/18 14:41 CONCLUSION: Abnormally dilated proximal and mid small bowel increased from the prior examinations with paucity of distal bowel gas is suspicious for some degree of obstruction. However, the oral contrast from the small bowel follow-through performed 2 days ago is within the colon suggesting against a complete or high- grade bowel obstruction. Abdomen X-Ray 10/10/18 00:00 CONCLUSION: Persistent small bowel ileus. Abdomen X-Ray 10/11/18 06:00 CONCLUSION: Continued mid to distal small bowel dilatation in spite of nasogastric tube Abdomen X-Ray 10/12/18 00:00 CONCLUSION: Small bowel ileus without significant improvement. Abdomen/Pelvis CT 10/13/18 00:00 CONCLUSION: 1. Abnormal bowel gas pattern again identified with multiple loops of mildly dilated small bowel filled with fluid. There is a transition zone in the anterior mid abdomen which is poorly defined and located near the hernia repair. The distal small bowel and colon are decompressed. Of concern for partial small bowel obstruction. Contrast is noted in the colon so there is no complete obstruction. This is also similar in appearance to the prior study and may be chronic. Assessment and Plan Assessment (1) Enteritis: Code(s): K52.9 - Noninfective gastroenteritis and colitis, unspecified Status: Acute (2) Partial obstruction of small intestine: Code(s): K56.600 - Partial intestinal obstruction, unspecified as to cause Status: Acute Plan This is a 58 year old male patient with a past surgical history which includes Laparoscopic repair of umbilical hernia repair with mesh 11/20/[address] Faust. Patient presented to the ER last night due to 1 day of mid abdominal pain which was worsening. He describes the pain as a severe soreness. He says his abdomen is not usually this protuberant. He denies nausea vomiting or diarrhea. He did eat yesterday and has continued to have bowel movements. White blood count is 12,[address] abdomen and pelvis showed possible partial small bowel obstruction with thickening of a portion of the jejunum. Partial SBO - Abdomen/Pelvis CT 10/07/18 --> Dilated proximal small bowel with a single loop of distal jejunum showing inflammatory change. No free air or abscess. - Pt was made NPO and given IVF - General surgery was consulted. - SBFT (10/07/18) --> Contrast is seen within the colon on the 4.5 hour image consistent with no complete obstruction. Dilatation of the small bowel, especially prominent at the proximal small bowel in the left mid abdomen. Some degree of partial obstruction cannot be excluded. Ileus could also have this appearance. - Pt had several BMs after the SBFT and is symptomatically doing better. - Repeat KUB (10/08/18: 1. Contrast administered for yesterday's small bowel series is now entirely in the colon extending to the rectum. 2. Persistent dilatation of several small bowel loops most consistent with adynamic ileus versus some degree of partial small bowel obstruction. - Pt still has not been tolerating liquids well. - Repeat CT Abd/Pelvis (10/13/18) 1. Abnormal bowel gas pattern again identified with multiple loops of mildly dilated small bowel filled with fluid. There is a transition zone in the anterior mid abdomen which is poorly defined and located near the hernia repair. The distal small bowel and colon are decompressed. Of concern for partial small bowel obstruction. Contrast is noted in the colon so there is no complete obstruction. This is also similar in appearance to the prior study and may be chronic. - Case discussed with Dr. Corrales on 10/14 and he plans to take the pt to the OR tomorrow. Hypokalemia - replaced - 10/12 potassium 3.5 - Repeat labs in AM DVT prophylaxis with SCDs Attending Attestation Patient examined. Assessment and plan formulated with Kylee Chatterjee PA-C. I agree with the above. to OR tomorrow for psbo transition point identified. Progress Note: Quality VTE Deep Vein Thrombosis/Pulmonary Embolism Present on Admission: No
[2018-10-14 12:13] LABS: Anion Gap 5 meq/L (5-15); Blood Urea Nitrogen 6 mg/dL (7-18); Calcium 8.7 mg/dL (8.5-10.1); Carbon Dioxide 30.7 meq/L (21.0-32.0); Chloride 103 meq/L (98-107); Glomerular Filtration Rate Greater Than 89 mL/min (>89); Glucose,Random 113 mg/dL (74-106); Potassium 4.1 meq/L (3.5-5.1); Sodium 139 meq/L (136-145)
[2018-10-14] MEDS: KCL 20 mEq/NACL 0.45% Inj 1,000 ML IV.CONT SCH ×2 (16:00→17:36)
[2018-10-15] MEDS: KCL 20 mEq/NACL 0.45% Inj 1,000 ML IV.CONT SCH ×2 (00:27→18:22)
[2018-10-15] MEDS ORDERED: Chlorhexidine Gluconate 2% 1 Pack (2 Cloths) TOPICAL ONE (04:58)
[2018-10-15] MEDS ORDERED: Sodium Chlor 0.9% Inj 500 ML IV.SIG SCH (05:00)
[2018-10-15 05:20] LABS: Baso # (Auto) 0.1 th/mm3 (0.0-0.2); Baso % (Auto) 0.7 % (0.0-2.0); Eos # (Auto) 0.1 th/mm3 (0.0-0.4); Eos % (Auto) 1.1 % (0.0-4.0); Hematocrit 36.6 % (39.0-51.0); Hemoglobin 12.4 gm/dL (13.0-17.0); Lymph # (Auto) 1.9 th/mm3 (1.0-4.8); Lymph % (Auto) 19.6 % (9.0-44.0); Mean Corpuscular HGB Conc 33.8 % (32.0-36.0); Mean Corpuscular Hemoglobin 30.1 pg (27.0-34.0); Mean Corpuscular Volume 89.2 fL (80.0-100.0); Mean Platelet Volume 7.4 fL (7.0-11.0); Mono # (Auto) 0.9 th/mm3 (0.0-0.9); Mono % (Auto) 9.3 % (0.0-8.0); Neut # (Auto) 6.9 th/mm3 (1.8-7.7); Neut % (Auto) 69.3 % (16.0-70.0); Platelet Count 303 th/mm3 (150-450); Red Cell Distribution Width 12.1 % (11.6-17.2)
[2018-10-15 05:59] LABS: Anion Gap 6 meq/L (5-15); Blood Urea Nitrogen 5 mg/dL (7-18); Calcium 8.3 mg/dL (8.5-10.1); Carbon Dioxide 28.1 meq/L (21.0-32.0); Chloride 105 meq/L (98-107); Glomerular Filtration Rate Greater Than 89 mL/min (>89); Glucose,Random 89 mg/dL (74-106); Potassium 4.1 meq/L (3.5-5.1); Sodium 139 meq/L (136-145)
--- NOTE | 2018-10-15 08:51 | P.PNGS ---
Subjective Interval history: No changes. He is ready to proceed to the OR today. Physical Exam Vital signs: Vital Signs 10/14/18 12:00 10/14/18 16:00 10/14/18 21:52 Temperature 98 F 98.2 F 98.3 F Pulse Rate 61 65 65 Respiratory Rate 18 18 17 Blood Pressure 107/53 L 98/53 L 109/50 L Pulse Oximetry 97 98 96 10/15/18 01:15 10/15/18 05:17 Temperature 98.2 F 98.5 F Pulse Rate 69 68 Respiratory Rate 17 16 Blood Pressure 109/53 L 121/58 L Pulse Oximetry 95 96 Intake & Output 10/14/18 10/15/18 10/15/18 18:59 06:59 18:59 Intake Total 960 / 960 260 / 260 Output Total 0 / 0 Balance 960 / 960 260 / 260 Weight 105.3 kg Intake: Oral 960 / 960 260 / 260 Output: Stool 0 / 0 Other: # Voids 5 5 Date of Last Bowel Movement 10/13/18 10/14/18 10/14/18 # Bowel Movements 5 Narrative: NAD Abd: distended, soft Results - Labs 10/15/18 04:31 10/15/18 04:31 Laboratory Results - last 24 hr 10/14/18 10/15/18 10/15/18 11:35 04:31 04:31 WBC 10.0 RBC 4.10 L Hgb 12.4 L Hct 36.6 L MCV 89.2 MCH 30.1 MCHC 33.8 RDW 12.1 Plt Count 303 MPV 7.4 Neut % (Auto) 69.3 Lymph % (Auto) 19.6 [place] % (Auto) 9.3 H Eos % (Auto) 1.1 Baso % (Auto) 0.7 Neut # (Auto) 6.9 Lymph # (Auto) 1.9 [place] # (Auto) 0.9 Eos # (Auto) 0.1 Baso # (Auto) 0.1 WBC Differential . Differential Comment Auto diff final Sodium 139 139 Potassium 4.1 4.1 Chloride 103 105 Carbon Dioxide 30.7 28.1 Anion Gap 5 6 BUN 6 L 5 L Creatinine 0.96 0.94 Estimated GFR Greater than 89 Greater than 89 Random Glucose 113 H 89 Calcium 8.7 8.3 L - Imaging Imaging: ITS Impressions Small Bowel X-Ray 10/07/18 00:00 CONCLUSION: Contrast is seen within the colon on the 4.5 hour image consistent with no complete obstruction. Dilatation of the small bowel, especially prominent at the proximal small bowel in the left mid abdomen. Some degree of partial obstruction cannot be excluded. Ileus could also have this appearance. Abdomen X-Ray 10/12/18 00:00 CONCLUSION: Small bowel ileus without significant improvement. Abdomen/Pelvis CT 10/13/18 00:00 CONCLUSION: 1. Abnormal bowel gas pattern again identified with multiple loops of mildly dilated small bowel filled with fluid. There is a transition zone in the anterior mid abdomen which is poorly defined and located near the hernia repair. The distal small bowel and colon are decompressed. Of concern for partial small bowel obstruction. Contrast is noted in the colon so there is no complete obstruction. This is also similar in appearance to the prior study and may be chronic. Assessment and Plan - Assessment (1) Enteritis Code(s): K52.9 - Noninfective gastroenteritis and colitis, unspecified Status : Acute (2) Partial obstruction of small intestine Code(s): K56.600 - Partial intestinal obstruction, unspecified as to cause Status: Acute - Plan Persistent partial SBO. He has not been able to tolerate full liquids despite having some liquid bowel movts. Proceed with laparoscopic lysis of adhesions, possible open, possible bowel resection today. He desires to proceed with surgery.
--- NOTE | 2018-10-15 11:17 | P.PNIM ---
Subjective Interval history: Pt still having some liquid stools No nausea or vomiting. Physical Exam Vital signs: Last Vital Signs Temp 98.1 F 10/15/18 08:23 Pulse 65 10/15/18 08:23 Resp 18 10/15/18 08:23 BP 121/58 L 10/15/18 08:23 Pulse Ox 98 10/15/18 08:23 Narrative: heart reg lung cta abd distended. bs ext no edema Results Labs CBC & Chem 7: 10/17/18 06:37 10/17/18 06:37 Assessment and Plan Assessment (1) Enteritis: Code(s): K52.9 - Noninfective gastroenteritis and colitis, unspecified Status: Acute (2) Partial obstruction of small intestine: Code(s): K56.600 - Partial intestinal obstruction, unspecified as to cause Status: Acute Plan This is a 58 year old male patient with a past surgical history which includes Laparoscopic repair of umbilical hernia repair with mesh 11/20/[address] Faust. Patient presented to the ER last night due to 1 day of mid abdominal pain which was worsening. He describes the pain as a severe soreness. He says his abdomen is not usually this protuberant. He denies nausea vomiting or diarrhea. He did eat yesterday and has continued to have bowel movements. White blood count is 12,[address] abdomen and pelvis showed possible partial small bowel obstruction with thickening of a portion of the jejunum. Partial SBO - Abdomen/Pelvis CT 10/07/18 --> Dilated proximal small bowel with a single loop of distal jejunum showing inflammatory change. No free air or abscess. - Pt was made NPO and given IVF - General surgery was consulted. - SBFT (10/07/18) --> Contrast is seen within the colon on the 4.5 hour image consistent with no complete obstruction. Dilatation of the small bowel, especially prominent at the proximal small bowel in the left mid abdomen. Some degree of partial obstruction cannot be excluded. Ileus could also have this appearance. - Pt had several BMs after the SBFT and is symptomatically doing better. - Repeat KUB (10/08/18: 1. Contrast administered for yesterday's small bowel series is now entirely in the colon extending to the rectum. 2. Persistent dilatation of several small bowel loops most consistent with adynamic ileus versus some degree of partial small bowel obstruction. - Pt still has not been tolerating liquids well. - Repeat CT Abd/Pelvis (10/13/18) 1. Abnormal bowel gas pattern again identified with multiple loops of mildly dilated small bowel filled with fluid. There is a transition zone in the anterior mid abdomen which is poorly defined and located near the hernia repair. The distal small bowel and colon are decompressed. Of concern for partial small bowel obstruction. Contrast is noted in the colon so there is no complete obstruction. This is also similar in appearance to the prior study and may be chronic. - Pt is planned to go to the OR this afternoon. Hypokalemia - replaced - 10/12 potassium 3.5 - Repeat labs in AM DVT prophylaxis with SCDs Attending Attestation Patient examined. Assessment and plan formulated with Kylee Chatterjee PA-C. I agree with the above. going to OR today for psbo and probable andriy. Progress Note: Quality VTE Deep Vein Thrombosis/Pulmonary Embolism Present on Admission: No
[2018-10-15] MEDS ORDERED: Bupivacaine/Epinephrine Inj 0.25% 50 ML Vial ONE (13:22)
[2018-10-15] MEDS ORDERED: ceFAZolin 1 GM Premix Inj 2 GM/100 ML PIGGYBACK IV.SIG ONE (14:11)
[2018-10-15] MEDS ORDERED: fentaNYL Citrate Inj 100 MCG/2 ML Ampul ONE ×2 (15:00→17:56)
[2018-10-15] MEDS: Ketorolac Inj 30 MG/ML (IVP) Vial IV.PUSH SCH (17:00)
[2018-10-15] MEDS ORDERED: HYDROmorphone PCA Inj 6 MG/30 ML PCA.VIAL PCA PRN (17:28)
[2018-10-15] MEDS ORDERED: Naloxone Inj 0.4 MG/ML Vial IV.PUSH PRN (17:28)
--- NOTE | 2018-10-15 17:34 | P.OP ---
- Preoperative Diagnosis (1) Partial obstruction of small intestine - Postoperative Diagnosis (1) Partial obstruction of small intestine Date of procedure: 10/15/18 Procedure: Laparoscopic lysis of adhesions converted to open lysis of adhesions. Total lysis of adhesions approx 2 hrs. Anesthesia: HALLIEA Surgeon: Vinnie Corrales MD Laundry Bag Punch Operator: Laure GUERRERO Estimated blood loss (mL): 30 Pathology: none sent Operation and Findings: Operative findings: Extensive matted adhesions between loops of small bowel. No obvious single transition point but there was decompressed small bowel distally and significantly dilated small bowel proximally. Procedure in detail: The patient was taken to the operating room and placed in the supine position. General anesthesia was induced. The abdomen was prepped and draped in usual sterile fashion and a surgical timeout was performed to verify correct patient procedure and site. Local anesthetic was injected in the skin and subcutaneous tissue in the left upper abdomen at the site of the previous scar and a 5 mm incision made. The abdomen was entered with a 5 mm Optiview trocar with the laparoscope in place. It was insufflated to 15 mmHg with CO2 gas which the patient tolerated well. There is noted to be adhesions of omentum and transverse colon in the upper abdomen. A second 5 mm trochars placed in the left midabdomen. Exploration was performed. There is not an obvious area of transition. 3 5 mm trochars were placed in the right abdomen and again exploration was performed. There is noted to be extensive somewhat matted adhesions between the large portion of the small bowel with no single transition point. I initially attempted laparoscopic lysis of adhesions but this was not going to be able to address the entire small bowel and therefore a midline incision was made. I did proceed through subcutaneous tissue and fascia as well as much of the previously placed ventral light mesh. I then performed a lysis of adhesions sharply of the small bowel from the terminal ileum to the ligament of Treitz. Lysis of adhesions took approximately 90 minutes. There were 2 small serosal tears were repaired with 3-0 silk suture. After lysis of adhesions there was no longer any areas of transition and no evidence of obstruction. Seprafilm was placed and the midline fascia and mesh closed with #1 Prolene suture. Skin closed with wide skin silvestre. The patient tolerated the procedure well and was extubated and taken to [facility] in stable condition.
[2018-10-15] MEDS ORDERED: *morphine SULFATE 10 MG/ML PERIprocedure ONLY ONE (17:49)
[2018-10-16] MEDS: Ketorolac Inj 30 MG/ML (IVP) Vial IV.PUSH SCH ×4 (00:53→17:28)
[2018-10-16] MEDS: KCL 20 mEq/NACL 0.45% Inj 1,000 ML IV.CONT SCH ×3 (00:53→17:28)
--- NOTE | 2018-10-16 10:43 | P.PNGS ---
Subjective Patient reports: no new complaints, no flatus, no bowel movement Physical Exam Vital signs: Vital Signs 10/15/18 12:00 10/15/18 17:39 10/15/18 17:45 Temperature 98.4 F 98.3 F Pulse Rate 60 65 65 Respiratory Rate 18 19 18 Blood Pressure 102/53 L 126/60 127/62 Pulse Oximetry 99 100 100 10/15/18 17:58 10/15/18 18:00 10/15/18 18:15 Temperature Pulse Rate 69 74 Respiratory Rate 18 18 18 Blood Pressure 133/59 L 121/60 Pulse Oximetry 100 100 10/15/18 18:30 10/15/18 19:00 10/15/18 20:10 Temperature 97.5 F L 98.8 F Pulse Rate 72 73 71 Respiratory Rate 18 15 18 Blood Pressure 110/55 L 100/53 L 104/57 L Pulse Oximetry 100 100 97 10/16/18 00:24 10/16/18 04:05 10/16/18 04:44 Temperature 99.1 F 98.4 F Pulse Rate 65 69 Respiratory Rate 16 16 17 Blood Pressure 96/53 L 105/51 L Pulse Oximetry 97 96 10/16/18 08:35 Temperature 98.7 F Pulse Rate 72 Respiratory Rate 19 Blood Pressure 104/52 L Pulse Oximetry 99 Intake & Output 10/15/18 10/16/18 10/16/18 18:59 06:59 18:59 Intake Total 2100 / 2100 1000 / 1000 1000 / 1000 Output Total 170 / 170 380 / 380 Balance 1930 / 1930 620 / 620 1000 / 1000 Weight 102.9 kg Intake: IV 1100 / 1100 1000 / 1000 1000 / 1000 Potassium Chlor 20 mEq/NACL 0. 1000 / 1000 1000 / 1000 1000 / 1000 45% Inj 1,000 ML @ 125 mls/hr IV.CONT .Q8H [facility] Rx#:[id number] Ancef 1 GM Premix Inj 2 gm In 100 / 100 100 ml @ 0 mls/hr IV.SIG .STK- [facility] Rx#:[id number] Anesthesia Amount 1000 / 1000 Output: Urine 350 / 350 Estimated Blood Loss 20 / 20 Urine Amount (Catheter) 150 / 150 Indwelling Urethral Catheter 150 / 150 Gastric Drainage 30 / 30 Right Nare Nasogastric Tube 30 / 30 Other: Date of Last Bowel Movement 10/14/18 10/14/18 - Constitutional no acute distress - Routine Abdominal Exam Present: soft, tenderness, distended Comments: incision C/D/I - Urinary Catheter Management Indwelling Urethral Catheter Cath placed during this visit: yes Reason for continuing: Other continuation reason Insertion date: 10/15/18 Insertion time: 14:50 Results - Labs 10/15/18 04:31 10/15/18 04:31 - Imaging Imaging: ITS Impressions Small Bowel X-Ray 10/07/18 00:00 CONCLUSION: Contrast is seen within the colon on the 4.5 hour image consistent with no complete obstruction. Dilatation of the small bowel, especially prominent at the proximal small bowel in the left mid abdomen. Some degree of partial obstruction cannot be excluded. Ileus could also have this appearance. Abdomen X-Ray 10/12/18 00:00 CONCLUSION: Small bowel ileus without significant improvement. Abdomen/Pelvis CT 10/13/18 00:00 CONCLUSION: 1. Abnormal bowel gas pattern again identified with multiple loops of mildly dilated small bowel filled with fluid. There is a transition zone in the anterior mid abdomen which is poorly defined and located near the hernia repair. The distal small bowel and colon are decompressed. Of concern for partial small bowel obstruction. Contrast is noted in the colon so there is no complete obstruction. This is also similar in appearance to the prior study and may be chronic. Assessment and Plan - Assessment (1) Enteritis Code(s): K52.9 - Noninfective gastroenteritis and colitis, unspecified Status : Acute (2) Partial obstruction of small intestine Code(s): K56.600 - Partial intestinal obstruction, unspecified as to cause Status: Acute Plan: d/c ngt d/c hanson ambulate d/c [employer]OR
--- NOTE | 2018-10-16 11:41 | P.PNIM ---
Subjective Interval history: Pt feeling well today, post op day #1 from Lap converted to open with extensive MILES Had NTG remove and Hanson cath removed Denies any nausea/vomiting. No flatus or BM yet. Tolerating ice chips Physical Exam Vital signs: Last Vital Signs Temp 98.7 F 10/16/18 08:35 Pulse 72 10/16/18 08:35 Resp 19 10/16/18 08:35 BP 104/52 L 10/16/18 08:35 Pulse Ox 99 10/16/18 08:35 Narrative: heart reg lung cta abd + some BS, soft, mildly distended. midline bandages are c/d/i ext no edema Results Labs CBC & Chem 7: 10/17/18 06:37 10/17/18 06:37 Assessment and Plan Assessment (1) Enteritis: Code(s): K52.9 - Noninfective gastroenteritis and colitis, unspecified Status: Acute (2) Partial obstruction of small intestine: Code(s): K56.600 - Partial intestinal obstruction, unspecified as to cause Status: Acute Plan This is a 58 year old male patient with a past surgical history which includes Laparoscopic repair of umbilical hernia repair with mesh 11/20/[address] Faust. Patient presented to the ER last night due to 1 day of mid abdominal pain which was worsening. He describes the pain as a severe soreness. He says his abdomen is not usually this protuberant. He denies nausea vomiting or diarrhea. He did eat yesterday and has continued to have bowel movements. White blood count is 12,[address] abdomen and pelvis showed possible partial small bowel obstruction with thickening of a portion of the jejunum. Partial SBO - Abdomen/Pelvis CT 10/07/18 --> Dilated proximal small bowel with a single loop of distal jejunum showing inflammatory change. No free air or abscess. - Pt was made NPO and given IVF - General surgery was consulted. - SBFT (10/07/18) --> Contrast is seen within the colon on the 4.5 hour image consistent with no complete obstruction. Dilatation of the small bowel, especially prominent at the proximal small bowel in the left mid abdomen. Some degree of partial obstruction cannot be excluded. Ileus could also have this appearance. - Pt had several BMs after the SBFT and is symptomatically doing better. - Repeat KUB (12/07/18: 1. Contrast administered for yesterday's small bowel series is now entirely in the colon extending to the rectum. 2. Persistent dilatation of several small bowel loops most consistent with adynamic ileus versus some degree of partial small bowel obstruction. - Pt still has not been tolerating liquids well. - Repeat CT Abd/Pelvis (10/13/18) 1. Abnormal bowel gas pattern again identified with multiple loops of mildly dilated small bowel filled with fluid. There is a transition zone in the anterior mid abdomen which is poorly defined and located near the hernia repair. The distal small bowel and colon are decompressed. Of concern for partial small bowel obstruction. Contrast is noted in the colon so there is no complete obstruction. This is also similar in appearance to the prior study and may be chronic. - Pt underwent Laparoscopic lysis of adhesions converted to open lysis of adhesions on 10/15/[address] Corrales. Per the op note the total lysis of adhesions took approx 2 hrs. - Pt had NGT removed and Hanson removed this morning. - SLAT GRADER to be stopped on 10/16. - Ambulate as tolerated Hypokalemia - Repeat labs in AM DVT prophylaxis with SCDs Attending Attestation Patient examined. Assessment and plan formulated with yKlee Chatterjee PA-C. I agree with the above. s/p MILES hanson/hog ringer/ngt out today ivf and ice chips. ambulate dc when sukhwinder po and ok with gen surg. Progress Note: Quality VTE Deep Vein Thrombosis/Pulmonary Embolism Present on Admission: No
[2018-10-16] MEDS: Morphine Inj 4 MG/ML Vial IV.PUSH PRN (21:10)
[2018-10-17] MEDS: KCL 20 mEq/NACL 0.45% Inj 1,000 ML IV.CONT SCH ×3 (03:16→21:07)
[2018-10-17] MEDS: Ketorolac Inj 30 MG/ML (IVP) Vial IV.PUSH SCH ×4 (03:16→17:00)
[2018-10-17 07:26] LABS: Baso # (Auto) 0.1 th/mm3 (0.0-0.2); Baso % (Auto) 0.7 % (0.0-2.0); Eos # (Auto) 0.1 th/mm3 (0.0-0.4); Eos % (Auto) 1.3 % (0.0-4.0); Hematocrit 32.8 % (39.0-51.0); Lymph # (Auto) 1.9 th/mm3 (1.0-4.8); Lymph % (Auto) 20.6 % (9.0-44.0); Mean Corpuscular HGB Conc 33.6 % (32.0-36.0); Mean Corpuscular Hemoglobin 30.4 pg (27.0-34.0); Mean Corpuscular Volume 90.5 fL (80.0-100.0); Mean Platelet Volume 7.2 fL (7.0-11.0); Mono # (Auto) 0.9 th/mm3 (0.0-0.9); Mono % (Auto) 9.3 % (0.0-8.0); Neut # (Auto) 6.3 th/mm3 (1.8-7.7); Neut % (Auto) 68.1 % (16.0-70.0); Platelet Count 282 th/mm3 (150-450); Red Blood Count 3.63 mil/mm3 (4.50-5.90); Red Cell Distribution Width 12.7 % (11.6-17.2); White Blood Count 9.3 th/mm3 (4.0-11.0)
[2018-10-17 07:50] LABS: Anion Gap 7 meq/L (5-15); Blood Urea Nitrogen 7 mg/dL (7-18); Calcium 7.8 mg/dL (8.5-10.1); Carbon Dioxide 23.4 meq/L (21.0-32.0); Chloride 109 meq/L (98-107); Glomerular Filtration Rate Greater Than 89 mL/min (>89); Glucose,Random 69 mg/dL (74-106); Potassium 4.2 meq/L (3.5-5.1); Sodium 139 meq/L (136-145)
--- NOTE | 2018-10-17 10:04 | P.PNGS ---
Subjective Patient reports: no new complaints, flatus, no bowel movement Physical Exam Vital signs: Vital Signs 10/16/18 11:39 10/16/18 13:26 10/16/18 16:02 Temperature 97.8 F 97.8 F Pulse Rate 65 67 Respiratory Rate 19 18 18 Blood Pressure 118/62 120/69 Pulse Oximetry 96 98 10/16/18 18:09 10/16/18 19:14 10/16/18 23:24 Temperature 98.4 F 98.3 F Pulse Rate 72 85 Respiratory Rate 18 18 Blood Pressure 109/48 L 121/57 L Pulse Oximetry 95 95 10/17/18 08:00 Temperature 98.9 F Pulse Rate 81 Respiratory Rate 18 Blood Pressure 111/56 L Pulse Oximetry 97 Intake & Output 10/16/18 10/17/18 10/17/18 18:59 06:59 18:59 Intake Total 1999 / 1999 1000 / 1000 Output Total 1250 / 1250 Balance 750 / 750 1000 / 1000 Weight 102.9 kg Intake: IV 1999 1000 / 1000 Potassium Chlor 20 mEq/NACL 0. 1999 1000 / 1000 45% Inj 1,000 ML @ 125 mls/hr IV.CONT .Q8H [facility] Rx#:[id number] Oral 0 / 0 Output: Urine 600 / 600 Urine Amount (Catheter) 650 / 650 Indwelling Urethral Catheter 650 / 650 Other: # Voids 2 6 Date of Last Bowel Movement 10/16/18 10/16/18 # Bowel Movements 0 - Constitutional no acute distress - Routine Abdominal Exam Present: soft, distended. Absent: tenderness - Urinary Catheter Management Indwelling Urethral Catheter Cath placed during this visit: yes, but has since been removed by the nurse Reason for continuing: Other continuation reason Insertion date: 10/15/18 Insertion time: 14:50 Removal date: 10/16/18 Removal time: 10:00 Results - Labs 10/17/18 06:37 10/17/18 06:37 Laboratory Results - last 24 hr 10/17/18 10/17/18 06:37 06:37 WBC 9.3 RBC 3.63 L Hgb 11.0 L Hct 32.8 L MCV 90.5 MCH 30.4 MCHC 33.6 RDW 12.7 Plt Count 282 MPV 7.2 Neut % (Auto) 68.1 Lymph % (Auto) 20.6 [place] % (Auto) 9.3 H Eos % (Auto) 1.3 Baso % (Auto) 0.7 Neut # (Auto) 6.3 Lymph # (Auto) 1.9 [place] # (Auto) 0.9 Eos # (Auto) 0.1 Baso # (Auto) 0.1 WBC Differential . Differential Comment Auto diff final Sodium 139 Potassium 4.2 Chloride 109 H Carbon Dioxide 23.4 Anion Gap 7 BUN 7 Creatinine 0.82 Estimated GFR Greater than 89 Random Glucose 69 L Calcium 7.8 L - Imaging Imaging: ITS Impressions Small Bowel X-Ray 10/07/18 00:00 CONCLUSION: Contrast is seen within the colon on the 4.5 hour image consistent with no complete obstruction. Dilatation of the small bowel, especially prominent at the proximal small bowel in the left mid abdomen. Some degree of partial obstruction cannot be excluded. Ileus could also have this appearance. Abdomen X-Ray 10/12/18 00:00 CONCLUSION: Small bowel ileus without significant improvement. Abdomen/Pelvis CT 10/13/18 00:00 CONCLUSION: 1. Abnormal bowel gas pattern again identified with multiple loops of mildly dilated small bowel filled with fluid. There is a transition zone in the anterior mid abdomen which is poorly defined and located near the hernia repair. The distal small bowel and colon are decompressed. Of concern for partial small bowel obstruction. Contrast is noted in the colon so there is no complete obstruction. This is also similar in appearance to the prior study and may be chronic. Assessment and Plan - Assessment (1) Enteritis Code(s): K52.9 - Noninfective gastroenteritis and colitis, unspecified Status : Acute (2) Partial obstruction of small intestine Code(s): K56.600 - Partial intestinal obstruction, unspecified as to cause Status: Acute Plan: Start clears cont ambulate
--- NOTE | 2018-10-17 10:50 | P.PNIM ---
Subjective Interval history: Pt is passing gas and had a small loose stool this morning. Denies any nausea/vomiting. He has been ambulating and sitting up in the chair. Physical Exam Vital signs: Last Vital Signs Temp 98.9 F 10/17/18 08:00 Pulse 81 10/17/18 08:00 Resp 18 10/17/18 08:00 BP 111/56 L 10/17/18 08:00 Pulse Ox 97 10/17/18 08:00 Narrative: heart reg lung cta abd + some BS, soft, mildly distended. midline bandages are c/d/i ext no edema Results Labs CBC & Chem 7: 10/17/18 06:37 10/17/18 06:37 Imaging Small Bowel X-Ray 10/07/18 00:00 CONCLUSION: Contrast is seen within the colon on the 4.5 hour image consistent with no complete obstruction. Dilatation of the small bowel, especially prominent at the proximal small bowel in the left mid abdomen. Some degree of partial obstruction cannot be excluded. Ileus could also have this appearance. Abdomen/Pelvis CT 10/07/18 03:03 CONCLUSION: 1. Dilated proximal small bowel with a single loop of distal jejunum showing inflammatory change. No free air or abscess. Abdomen X-Ray 10/08/18 07:00 CONCLUSION: 1. Contrast administered for yesterday's small bowel series is now entirely in the colon extending to the rectum. 2. Persistent dilatation of several small bowel loops most consistent with adynamic ileus versus some degree of partial small bowel obstruction. Abdomen X-Ray 10/09/18 14:41 CONCLUSION: Abnormally dilated proximal and mid small bowel increased from the prior examinations with paucity of distal bowel gas is suspicious for some degree of obstruction. However, the oral contrast from the small bowel follow-through performed 2 days ago is within the colon suggesting against a complete or high- grade bowel obstruction. Abdomen X-Ray 10/10/18 00:00 CONCLUSION: Persistent small bowel ileus. Abdomen X-Ray 10/11/18 06:00 CONCLUSION: Continued mid to distal small bowel dilatation in spite of nasogastric tube Abdomen X-Ray 10/12/18 00:00 CONCLUSION: Small bowel ileus without significant improvement. Abdomen/Pelvis CT 10/13/18 00:00 CONCLUSION: 1. Abnormal bowel gas pattern again identified with multiple loops of mildly dilated small bowel filled with fluid. There is a transition zone in the anterior mid abdomen which is poorly defined and located near the hernia repair. The distal small bowel and colon are decompressed. Of concern for partial small bowel obstruction. Contrast is noted in the colon so there is no complete obstruction. This is also similar in appearance to the prior study and may be chronic. Assessment and Plan Assessment (1) Enteritis: Code(s): K52.9 - Noninfective gastroenteritis and colitis, unspecified Status: Acute (2) Partial obstruction of small intestine: Code(s): K56.600 - Partial intestinal obstruction, unspecified as to cause Status: Acute Plan This is a 58 year old male patient with a past surgical history which includes Laparoscopic repair of umbilical hernia repair with mesh 11/20/[address] Faust. Patient presented to the ER last night due to 1 day of mid abdominal pain which was worsening. He describes the pain as a severe soreness. He says his abdomen is not usually this protuberant. He denies nausea vomiting or diarrhea. He did eat yesterday and has continued to have bowel movements. White blood count is 12,[address] abdomen and pelvis showed possible partial small bowel obstruction with thickening of a portion of the jejunum. Partial SBO - Abdomen/Pelvis CT 10/07/18 --> Dilated proximal small bowel with a single loop of distal jejunum showing inflammatory change. No free air or abscess. - Pt was made NPO and given IVF - General surgery was consulted. - SBFT (10/07/18) --> Contrast is seen within the colon on the 4.5 hour image consistent with no complete obstruction. Dilatation of the small bowel, especially prominent at the proximal small bowel in the left mid abdomen. Some degree of partial obstruction cannot be excluded. Ileus could also have this appearance. - Pt had several BMs after the SBFT and is symptomatically doing better. - Repeat KUB (10/08/18: 1. Contrast administered for yesterday's small bowel series is now entirely in the colon extending to the rectum. 2. Persistent dilatation of several small bowel loops most consistent with adynamic ileus versus some degree of partial small bowel obstruction. - Pt still has not been tolerating liquids well. - Repeat CT Abd/Pelvis (10/13/18) 1. Abnormal bowel gas pattern again identified with multiple loops of mildly dilated small bowel filled with fluid. There is a transition zone in the anterior mid abdomen which is poorly defined and located near the hernia repair. The distal small bowel and colon are decompressed. Of concern for partial small bowel obstruction. Contrast is noted in the colon so there is no complete obstruction. This is also similar in appearance to the prior study and may be chronic. - Pt underwent Laparoscopic lysis of adhesions converted to open lysis of adhesions on 10/15/[address] Corrales. Per the op note the total lysis of adhesions took approx 2 hrs. - Pt had NGT removed and Arellano removed on 10/16/18 - [employer] SUPERVISOR stopped on 10/16. - Pt passing gas and had a small BM this morning. - GS has advanced pts diet is advanced to clear liquids this afternoon - Ambulate as tolerated Hypokalemia - Repeat labs in AM DVT prophylaxis with SCDs Progress Note: Quality VTE Deep Vein Thrombosis/Pulmonary Embolism Present on Admission: No
[2018-10-18] MEDS: Ketorolac Inj 30 MG/ML (IVP) Vial IV.PUSH SCH ×4 (00:28→17:23)
[2018-10-18] MEDS: KCL 20 mEq/NACL 0.45% Inj 1,000 ML IV.CONT SCH (00:40)
--- NOTE | 2018-10-18 10:46 | P.PNIM ---
Subjective Interval history: Pt is moving his bowels, mostly liquid stools. He tolerated oral intake and diet has been advanced to soft diet. Physical Exam Vital signs: Last Vital Signs Temp 97.8 F 10/18/18 08:00 Pulse 65 10/18/18 08:00 Resp 20 10/18/18 08:00 BP 115/61 10/18/18 08:00 Pulse Ox 97 10/18/18 08:00 Narrative: heart reg lung cta abd + some BS, soft, mildly distended. midline bandages are c/d/i ext no edema Results Labs CBC & Chem 7: 10/17/18 06:37 10/17/18 06:37 Imaging Small Bowel X-Ray 10/07/18 00:00 CONCLUSION: Contrast is seen within the colon on the 4.5 hour image consistent with no complete obstruction. Dilatation of the small bowel, especially prominent at the proximal small bowel in the left mid abdomen. Some degree of partial obstruction cannot be excluded. Ileus could also have this appearance. Abdomen/Pelvis CT 10/07/18 03:03 CONCLUSION: 1. Dilated proximal small bowel with a single loop of distal jejunum showing inflammatory change. No free air or abscess. Abdomen X-Ray 10/08/18 07:00 CONCLUSION: 1. Contrast administered for yesterday's small bowel series is now entirely in the colon extending to the rectum. 2. Persistent dilatation of several small bowel loops most consistent with adynamic ileus versus some degree of partial small bowel obstruction. Abdomen X-Ray 10/09/18 14:41 CONCLUSION: Abnormally dilated proximal and mid small bowel increased from the prior examinations with paucity of distal bowel gas is suspicious for some degree of obstruction. However, the oral contrast from the small bowel follow-through performed 2 days ago is within the colon suggesting against a complete or high- grade bowel obstruction. Abdomen X-Ray 10/10/18 00:00 CONCLUSION: Persistent small bowel ileus. Abdomen X-Ray 10/11/18 06:00 CONCLUSION: Continued mid to distal small bowel dilatation in spite of nasogastric tube Abdomen X-Ray 10/12/18 00:00 CONCLUSION: Small bowel ileus without significant improvement. Abdomen/Pelvis CT 10/13/18 00:00 CONCLUSION: 1. Abnormal bowel gas pattern again identified with multiple loops of mildly dilated small bowel filled with fluid. There is a transition zone in the anterior mid abdomen which is poorly defined and located near the hernia repair. The distal small bowel and colon are decompressed. Of concern for partial small bowel obstruction. Contrast is noted in the colon so there is no complete obstruction. This is also similar in appearance to the prior study and may be chronic. Assessment and Plan Assessment (1) Enteritis: Code(s): K52.9 - Noninfective gastroenteritis and colitis, unspecified Status: Acute (2) Partial obstruction of small intestine: Code(s): K56.600 - Partial intestinal obstruction, unspecified as to cause Status: Acute Plan This is a 58 year old male patient with a past surgical history which includes Laparoscopic repair of umbilical hernia repair with mesh 11/20/[address] Faust. Patient presented to the ER last night due to 1 day of mid abdominal pain which was worsening. He describes the pain as a severe soreness. He says his abdomen is not usually this protuberant. He denies nausea vomiting or diarrhea. He did eat yesterday and has continued to have bowel movements. White blood count is 12,[address] abdomen and pelvis showed possible partial small bowel obstruction with thickening of a portion of the jejunum. Partial SBO - Abdomen/Pelvis CT 10/07/18 --> Dilated proximal small bowel with a single loop of distal jejunum showing inflammatory change. No free air or abscess. - Pt was made NPO and given IVF - General surgery was consulted. - SBFT (10/07/18) --> Contrast is seen within the colon on the 4.5 hour image consistent with no complete obstruction. Dilatation of the small bowel, especially prominent at the proximal small bowel in the left mid abdomen. Some degree of partial obstruction cannot be excluded. Ileus could also have this appearance. - Pt had several BMs after the SBFT and is symptomatically doing better. - Repeat KUB (10/08/18: 1. Contrast administered for yesterday's small bowel series is now entirely in the colon extending to the rectum. 2. Persistent dilatation of several small bowel loops most consistent with adynamic ileus versus some degree of partial small bowel obstruction. - Pt still has not been tolerating liquids well. - Repeat CT Abd/Pelvis (10/13/18) 1. Abnormal bowel gas pattern again identified with multiple loops of mildly dilated small bowel filled with fluid. There is a transition zone in the anterior mid abdomen which is poorly defined and located near the hernia repair. The distal small bowel and colon are decompressed. Of concern for partial small bowel obstruction. Contrast is noted in the colon so there is no complete obstruction. This is also similar in appearance to the prior study and may be chronic. - Pt underwent Laparoscopic lysis of adhesions converted to open lysis of adhesions on 10/15/[address] Corrales. Per the op note the total lysis of adhesions took approx 2 hrs. - Pt had NGT removed and Arellano removed on 10/16/18 - AIR SUPPORT CONTROL OFFICER stopped on 10/16. - Pt is moving his bowels - GS has advanced pts diet is advanced to soft diet - KUB in AM - Ambulate as tolerated Hypokalemia - Repeat labs are stable. DVT prophylaxis with SCDs Progress Note: Quality VTE Deep Vein Thrombosis/Pulmonary Embolism Present on Admission: No
--- NOTE | 2018-10-18 11:27 | P.PNGS ---
Subjective Interval history: He feels less bloated than preop. Lisa clears without nausea. + flatus and bm. Physical Exam Vital signs: Vital Signs 10/17/18 12:00 10/17/18 16:00 10/17/18 19:39 Temperature 97.8 F 97.4 F L 98.2 F Pulse Rate 72 73 70 Respiratory Rate 18 18 18 Blood Pressure 123/58 L 120/65 120/64 Pulse Oximetry 97 98 94 L 10/17/18 23:26 10/18/18 08:00 Temperature 98.7 F 97.8 F Pulse Rate 68 65 Respiratory Rate 18 20 Blood Pressure 108/56 L 115/61 Pulse Oximetry 94 L 97 Intake & Output 10/17/18 10/18/18 10/18/18 18:59 06:59 18:59 Intake Total 1480 / 1480 1240 / 1240 Balance 1480 / 1480 1240 / 1240 Weight 102.9 kg Intake: IV 1000 / 1000 1000 / 1000 Potassium Chlor 20 mEq/NACL 0. 1000 / 1000 1000 / 1000 45% Inj 1,000 ML @ 125 mls/hr IV.CONT .Q8H [facility] Rx#:[id number] Oral 480 / 480 240 / 240 Other: # Voids 3 Date of Last Bowel Movement 10/16/18 10/17/18 # Bowel Movements 0 Narrative: NAD Abd: mild distention, inc c/d/i - Urinary Catheter Management Indwelling Urethral Catheter Cath placed during this visit: yes, but has since been removed by the nurse Reason for continuing: Other continuation reason Insertion date: 10/15/18 Insertion time: 14:50 Removal date: 10/16/18 Removal time: 10:00 Results - Labs 10/17/18 06:37 10/17/18 06:37 - Imaging Imaging: ITS Impressions Small Bowel X-Ray 10/07/18 00:00 CONCLUSION: Contrast is seen within the colon on the 4.5 hour image consistent with no complete obstruction. Dilatation of the small bowel, especially prominent at the proximal small bowel in the left mid abdomen. Some degree of partial obstruction cannot be excluded. Ileus could also have this appearance. Abdomen X-Ray 10/12/18 00:00 CONCLUSION: Small bowel ileus without significant improvement. Abdomen/Pelvis CT 10/13/18 00:00 CONCLUSION: 1. Abnormal bowel gas pattern again identified with multiple loops of mildly dilated small bowel filled with fluid. There is a transition zone in the anterior mid abdomen which is poorly defined and located near the hernia repair. The distal small bowel and colon are decompressed. Of concern for partial small bowel obstruction. Contrast is noted in the colon so there is no complete obstruction. This is also similar in appearance to the prior study and may be chronic. Assessment and Plan - Assessment (1) Enteritis Code(s): K52.9 - Noninfective gastroenteritis and colitis, unspecified Status : Acute (2) Partial obstruction of small intestine Code(s): K56.600 - Partial intestinal obstruction, unspecified as to cause Status: Acute - Plan POD 3 s/p ex lap, lysis of adhesions. Doing well. Start soft diet. If tolerates can dc home tomorrow.
[2018-10-19] MEDS: Ketorolac Inj 30 MG/ML (IVP) Vial IV.PUSH SCH ×3 (01:07→12:00)
--- NOTE | 2018-10-19 08:32 | P.PNIM ---
Subjective Interval history: Pt tolerated soft diet. He reported some "tightness" in his abdomen yesterday after eating lunch but felt fine with dinner He had two liquid BMs yesterday No nausea/vomiting. Physical Exam Vital signs: Last Vital Signs Temp 98.2 F 10/19/18 00:00 Pulse 76 10/19/18 00:00 Resp 18 10/19/18 01:37 BP 118/62 10/19/18 00:00 Pulse Ox 97 10/19/18 00:00 Narrative: heart reg lung cta abd + BS, soft, mildly distended. midline incision/bandages are c/d/i ext no edema Results Labs CBC & Chem 7: 10/17/18 06:37 10/17/18 06:37 Imaging Small Bowel X-Ray 10/07/18 00:00 CONCLUSION: Contrast is seen within the colon on the 4.5 hour image consistent with no complete obstruction. Dilatation of the small bowel, especially prominent at the proximal small bowel in the left mid abdomen. Some degree of partial obstruction cannot be excluded. Ileus could also have this appearance. Abdomen/Pelvis CT 10/07/18 03:03 CONCLUSION: 1. Dilated proximal small bowel with a single loop of distal jejunum showing inflammatory change. No free air or abscess. Abdomen X-Ray 10/08/18 07:00 CONCLUSION: 1. Contrast administered for yesterday's small bowel series is now entirely in the colon extending to the rectum. 2. Persistent dilatation of several small bowel loops most consistent with adynamic ileus versus some degree of partial small bowel obstruction. Abdomen X-Ray 10/09/18 14:41 CONCLUSION: Abnormally dilated proximal and mid small bowel increased from the prior examinations with paucity of distal bowel gas is suspicious for some degree of obstruction. However, the oral contrast from the small bowel follow-through performed 2 days ago is within the colon suggesting against a complete or high- grade bowel obstruction. Abdomen X-Ray 10/10/18 00:00 CONCLUSION: Persistent small bowel ileus. Abdomen X-Ray 10/11/18 06:00 CONCLUSION: Continued mid to distal small bowel dilatation in spite of nasogastric tube Abdomen X-Ray 10/12/18 00:00 CONCLUSION: Small bowel ileus without significant improvement. Abdomen/Pelvis CT 10/13/18 00:00 CONCLUSION: 1. Abnormal bowel gas pattern again identified with multiple loops of mildly dilated small bowel filled with fluid. There is a transition zone in the anterior mid abdomen which is poorly defined and located near the hernia repair. The distal small bowel and colon are decompressed. Of concern for partial small bowel obstruction. Contrast is noted in the colon so there is no complete obstruction. This is also similar in appearance to the prior study and may be chronic. Assessment and Plan Assessment (1) Enteritis: Code(s): K52.9 - Noninfective gastroenteritis and colitis, unspecified Status: Acute (2) Partial obstruction of small intestine: Code(s): K56.600 - Partial intestinal obstruction, unspecified as to cause Status: Acute Plan This is a 58 year old male patient with a past surgical history which includes Laparoscopic repair of umbilical hernia repair with mesh 11/20/[address] Faust. Patient presented to the ER last night due to 1 day of mid abdominal pain which was worsening. He describes the pain as a severe soreness. He says his abdomen is not usually this protuberant. He denies nausea vomiting or diarrhea. He did eat yesterday and has continued to have bowel movements. White blood count is 12,[address] abdomen and pelvis showed possible partial small bowel obstruction with thickening of a portion of the jejunum. Partial SBO - Abdomen/Pelvis CT 10/07/18 --> Dilated proximal small bowel with a single loop of distal jejunum showing inflammatory change. No free air or abscess. - Pt was made NPO and given IVF - General surgery was consulted. - SBFT (10/07/18) --> Contrast is seen within the colon on the 4.5 hour image consistent with no complete obstruction. Dilatation of the small bowel, especially prominent at the proximal small bowel in the left mid abdomen. Some degree of partial obstruction cannot be excluded. Ileus could also have this appearance. - Pt had several BMs after the SBFT and is symptomatically doing better. - Repeat KUB (10/08/18: 1. Contrast administered for yesterday's small bowel series is now entirely in the colon extending to the rectum. 2. Persistent dilatation of several small bowel loops most consistent with adynamic ileus versus some degree of partial small bowel obstruction. - Pt still has not been tolerating liquids well. - Repeat CT Abd/Pelvis (10/13/18) 1. Abnormal bowel gas pattern again identified with multiple loops of mildly dilated small bowel filled with fluid. There is a transition zone in the anterior mid abdomen which is poorly defined and located near the hernia repair. The distal small bowel and colon are decompressed. Of concern for partial small bowel obstruction. Contrast is noted in the colon so there is no complete obstruction. This is also similar in appearance to the prior study and may be chronic. - Pt underwent Laparoscopic lysis of adhesions converted to open lysis of adhesions on 10/15/[address] Corrales. Per the op note the total lysis of adhesions took approx 2 hrs. - Pt had NGT removed and Arellano removed on 10/16/18 - EXTRACT MIXER stopped on 10/16. - Pt is moving his bowels - Pt is tolerating soft diet - Awaiting KUB this AM - Ambulate as tolerated Hypokalemia - Repeat labs are stable. DVT prophylaxis with SCDs Progress Note: Quality VTE Deep Vein Thrombosis/Pulmonary Embolism Present on Admission: No
--- NOTE | 2018-10-19 10:12 | P.PNGS ---
Subjective Interval history: He has tolerated three meals with only mild bloating. Minimal pain. Physical Exam Vital signs: Vital Signs 10/18/18 12:00 10/18/18 16:00 10/18/18 20:00 Temperature 98.1 F 97.9 F 99.8 F H Pulse Rate 68 76 80 Respiratory Rate 22 16 21 Blood Pressure 128/70 130/61 132/60 Pulse Oximetry 95 99 99 10/19/18 00:00 10/19/18 01:37 10/19/18 08:00 Temperature 98.2 F 97.5 F L Pulse Rate 76 70 Respiratory Rate 20 18 16 Blood Pressure 118/62 119/56 L Pulse Oximetry 97 96 Intake & Output 10/18/18 10/19/18 10/19/18 18:59 06:59 18:59 Intake Total 180 / 180 Balance 180 / 180 Weight 102.9 kg Intake: Oral 180 / 180 Other: # Voids 2 Date of Last Bowel Movement 10/18/18 10/18/18 Narrative: NAD, comfortable Abd: rounded, soft, minimal tenderness, inc c/d/i - Urinary Catheter Management Indwelling Urethral Catheter Cath placed during this visit: yes, but has since been removed by the nurse Reason for continuing: Other continuation reason Insertion date: 10/15/18 Insertion time: 14:50 Removal date: 10/16/18 Removal time: 10:00 Results - Labs 10/17/18 06:37 10/17/18 06:37 - Imaging Imaging: ITS Impressions Small Bowel X-Ray 10/07/18 00:00 CONCLUSION: Contrast is seen within the colon on the 4.5 hour image consistent with no complete obstruction. Dilatation of the small bowel, especially prominent at the proximal small bowel in the left mid abdomen. Some degree of partial obstruction cannot be excluded. Ileus could also have this appearance. Abdomen X-Ray 10/12/18 00:00 CONCLUSION: Small bowel ileus without significant improvement. Abdomen/Pelvis CT 10/13/18 00:00 CONCLUSION: 1. Abnormal bowel gas pattern again identified with multiple loops of mildly dilated small bowel filled with fluid. There is a transition zone in the anterior mid abdomen which is poorly defined and located near the hernia repair. The distal small bowel and colon are decompressed. Of concern for partial small bowel obstruction. Contrast is noted in the colon so there is no complete obstruction. This is also similar in appearance to the prior study and may be chronic. Assessment and Plan - Plan POD 4 s/p ex lap, lysis of adhesions. Doing well. Tolerating diet. Clear for dc home from my standpoint.
--- NOTE | 2018-10-19 11:07 | XR ---
EXAM DATE: 10/19/2018 10:39 AM EST AGE/SEX: 58 years / Male INDICATIONS: Distention. CLINICAL DATA: This is the patient's subsequent encounter. Patient reports that signs and symptoms h ave been present for 2 weeks and indicates a pain score of 1/10. MEDICAL/SURGICAL HISTORY: . bowel obstruction. . hernia repair. colon surgery for obstruction [place] [facility] [place]. . FINDINGS: The scattered minimally dilated air-filled loops of small bowel have improved slightly suggesting imp roving ileus. No colonic obstruction is noted. No free intraperitoneal air is noted. CONCLUSION: Scattered minimally dilated air-filled loops of small bowel have improved slightly suggesting improvi ng ileus. Electronically signed by: Phan Ram MD Board Certified Radiologist 10/19/2018 11:06 AM EST
--- NOTE | 2018-10-19 12:30 | P.DS ---
DS: Providers Date of admission: 10/07/18 04:05 Primary care physician: No Primary Care Physician Consults: 10/07/18 04:05 Consult to General Surgery Routine Consulting Provider: Vinnie Corrales Patient known to:: Nikita Faust Reason for Consultation: early or partial SBO Notified:: Service Spoke with:: GENNA Date Notified:: 10/07/18 Time Notified:: 05:16 Comments:: [facility] Ordering Provider: JOSE RAMON DS: Diagnosis Discharge Diagnosis (1) Enteritis: Status: Acute (2) Partial obstruction of small intestine: Status: Acute DS: Summary Partial SBO This is a 58 year old male patient with a past surgical history which includes Laparoscopic repair of umbilical hernia repair with mesh 11/20/[address] Faust. Patient presented to the ER on 10/07/18 with 1 day of mid abdominal pain and distension which was worsening. White blood count is 12,[address] Abd/ Pelvis (10/07/18) --> Dilated proximal small bowel with a single loop of distal jejunum showing inflammatory change. No free air or abscess. Pt was made NPO and given IVF. General surgery was consulted. SBFT (10/07/18) --> Contrast is seen within the colon on the 4.5 hour image consistent with no complete obstruction. Dilatation of the small bowel, especially prominent at the proximal small bowel in the left mid abdomen. Some degree of partial obstruction cannot be excluded. Ileus could also have this appearance. Pt had several BMs after the SBFT and was initially symptomatically doing better. Repeat KUB (10/08/18) --> Contrast administered for yesterday's small bowel series is now entirely in the colon extending to the rectum. Persistent dilatation of several small bowel loops most consistent with adynamic ileus versus some degree of partial small bowel obstruction. His diet was advanced to clear and then full liquids but he had increased difficulty with tolerating liquids well. Repeat CT Abd/Pelvis (10/13/18) --> Abnormal bowel gas pattern again identified with multiple loops of mildly dilated small bowel filled with fluid. There is a transition zone in the anterior mid abdomen which is poorly defined and located near the hernia repair. The distal small bowel and colon are decompressed. Of concern for partial small bowel obstruction. Contrast is noted in the colon so there is no complete obstruction. This is also similar in appearance to the prior study and may be chronic. Pt underwent Laparoscopic lysis of adhesions converted to open lysis of adhesions on 10/15/[address] Corrales. Per the op note the total lysis of adhesions took approx 2 hrs. Pt had NGT removed and Arellano removed on 10/16/18. MAGNETIC TAPE WINDER stopped on 10/16. Pt has been moving his bowels since surgery and was tolerating soft diet since 10/18. Repeat KUB (10/19/18) --> Scattered minimally dilated air-filled loops of small bowel have improved slightly suggesting improving ileus. Pt has been stable clinically, ambulating without difficulty, tolerating soft diet and pain is controlled on the day of discharge. He was cleared for discharge by General Surgery on 10/19 and will need to followup with Dr. Corrales in 7 days. Pt will need to followup with his PCP in 1 week as well. Pt was prescribed Ketorolac 10mg Q6H PRN #10 at discharge. Time Spent with Patient Total time spent providing and/or coordinating discharge services: Quality: VTE Deep Vein Thrombosis/Pulmonary Embolism Present on Admission: No Results Impressions ITS Impressions Small Bowel X-Ray 10/07/18 00:00 CONCLUSION: Contrast is seen within the colon on the 4.5 hour image consistent with no complete obstruction. Dilatation of the small bowel, especially prominent at the proximal small bowel in the left mid abdomen. Some degree of partial obstruction cannot be excluded. Ileus could also have this appearance. Abdomen/Pelvis CT 10/13/18 00:00 CONCLUSION: 1. Abnormal bowel gas pattern again identified with multiple loops of mildly dilated small bowel filled with fluid. There is a transition zone in the anterior mid abdomen which is poorly defined and located near the hernia repair. The distal small bowel and colon are decompressed. Of concern for partial small bowel obstruction. Contrast is noted in the colon so there is no complete obstruction. This is also similar in appearance to the prior study and may be chronic. Abdomen X-Ray 10/19/18 00:00 CONCLUSION: Scattered minimally dilated air-filled loops of small bowel have improved slightly suggesting improving ileus. Discharge Plan Discharge Disposition Patient Disposition: 01 Discharge Home Discharge Condition Condition: Stable Discharge Order Discharge Orders: Discharge Order (Routine); Ordered 10/19/18 Ordered By: Kylee Chatterjee Discharge Details Anticipated Discharge Date: 10/19/18 Discharge Comment: Pt is to followup with Dr. Corrales in 7-10 days following discharge He is to followup with his PCP in 1 week. Physicians Team ED Provider: Clarice Valladares Primary Care Provider: [facility] Attending Provider: Lon See Other Providers: Vinnie Corrales Rxs /Orders / Referrals /Forms Prescriptions: New ketorolac 10 mg Tablet 10 mg PO Q6H PRN (Reason: Pain) Qty: 10 RF: 0 Continue No Known Home Medications RF: 0 Referrals: Harrison Naidu MD [Family Provider] - See Instructions (follow up in 1 week) Vinnie Corrales MD [GENERAL SURGERY] - See Instructions (Followup in 7-10 days from discharge. ) [facility] [Primary Care Provider] - See Instructions Status ED Status: Left Department
== END 2018-10-19 13:57 | disposition home or self-care (01) ==
LOC: NEPC 02:45 → NEDA 04:05 → N06 05:51 → NEDA 05:51 → N07 10-18 16:39
PROVIDERS: ADMIT Hospitalist; ATTEND Hospitalist
DX: K56.51 Intestinal adhesions [bands], with partial obstruction; K52.9 Noninfective gastroenteritis and colitis, unspecified; Z23 Encounter for immunization; Z53.31 Laparoscopic surgical procedure converted to open procedure; K91.71 Accidental puncture and laceration of a digestive system organ or structure during a digestive system procedure; E87.6 Hypokalemia